=== PATIENT | male | born 1980 | race Caucasian/White ===

== ENCOUNTER → 2017-12-05 | Outpatient (CLI) | payer OTHER | LOC: FIMAGING 09:11 | PROVIDERS: ATTEND Emergency Medicine | DX: J98.09 Other diseases of bronchus, not elsewhere classified (principal); J98.11 Atelectasis; K44.9 Diaphragmatic hernia without obstruction or gangrene ==

== ENCOUNTER 2017-12-21 05:07 | Inpatient (IN) | payer OTHER ==
[2017-12-21] MEDS ORDERED: ALBUTEROL 3 ML DEYVIAL ONE ×2 (05:29→10:43)
[2017-12-21] MEDS ORDERED: ALBUTEROL 3 ML DEYVIAL IH ONE (05:29)
--- NOTE | 2017-12-21 06:01 | EDPHY ---
H & P Stated Complaint: cough X 2 months - Personal History Current Tetanus/Diphtheria Vaccine: Yes Current Tetanus Diphtheria and Acellular Pertussis (TDAP): Yes - Medical/Surgical History Hx Asthma: Yes Hx Chronic Respiratory Disease: No Hx Diabetes: No Hx Cardiac Disease: No Hx Renal Disease: No Hx Cirrhosis: No Hx Alcoholism: No Hx HIV/AIDS: No Hx Splenectomy or Spleen Trauma: No - Social History Smoking Status: Never smoked <Lionel Wills - Last Filed: 12/21/17 07:11> <Mayela Thorpe - Last Filed: 12/21/17 14:40> Time Seen by Provider: 12/21/17 05:17 HPI/ROS: Chief Complaint: Cough HPI: 37-year-old male who is been having a cough for the last 2 months. Patient was initially diagnosed with bronchitis. He followed up with Dr. Link , pulmonology earlier this week. He was given a prescription for inhaled steroid but only got that filled yesterday because of a pharmacy mix up. Patient states that he has been having worsening cough over the last 24 hr. Some mild pain with coughing in his left upper chest. He has had some subjective fevers or chills. He states he occasionally coughs up a quarter- sized piece of sputum which is occasionally blood tinged. No nausea or vomiting. No substernal chest pressure. No lightheadedness or fainting. No palpitations. ROS: 10 systems were reviewed and were negative except those elements noted in the HPI. PMH: Anxiety Social History: No smoking Family History: non-contributory Physical Exam: Gen: Awake, Alert, No Distress HEENT: Nose: no rhinorrhea Eyes: PERRLA, EOMI Mouth: Moist mucosa Neck: Supple, no JVD Chest: nontender, lungs clear to auscultation Heart: S1, S2 normal, no murmur Abd: Soft, non-tender, no guarding Back: no CVA tenderness, no midline tenderness Ext: no edema, non-tender Skin: no rash Neuro: CN II-XII intact, Sensation grossly intact, Strength 5/5 in bilateral upper and lower extremities (Lionel Wills) Constitutional: Initial Vital Signs Temperature (C) 38.0 C 12/21/17 05:12 Heart Rate 115 H 12/21/17 05:12 Respiratory Rate 18 12/21/17 05:12 Blood Pressure 104/56 L 12/21/17 05:12 O2 Sat (%) 92 12/21/17 05:12 O2 Delivery Mode Room Air Allergies/Adverse Reactions: ciprofloxacin Allergy (Severe, Verified 12/21/17 10:20) tendonitis levofloxacin [From Levaquin] Allergy (Severe, Verified 12/21/17 10:20) tendonitis benzonatate [From Tessalon Perles] Allergy (Unknown, Verified 12/21/17 10:20) throat swelling Home Medications: Medication Instructions Recorded Zolpidem Tartrate [Ambien] 10 mg PO HS 09/02/14 Acetaminophen/ASA/Caffeine 1 - 2 each PO DAILY PRN 12/21/17 [Excedrin Tablet (*)] Albuterol Sulfate [Proair Hfa] 2 puffs IH Q4H PRN 12/21/17 Azelaic Acid [Azelex] 1 suraj TP DAILY 12/21/17 Diazepam [Valium 10 MG (*)] 10 mg PO DAILY PRN 12/21/17 Ibuprofen [Motrin (*)] 200 - 400 mg PO Q6H PRN 12/21/17 Oxymetazoline HCl [Afrin Nasal 1 spray EACHNARE BID PRN 12/21/17 [place] (OTC)] Medical Decision Making - Diagnostics Imaging: I viewed and interpreted images myself <Lionel Wills - Last Filed: 12/21/17 07:11> - Diagnostics Imaging: Discussed imaging studies w/ power generation plant operator Radiologist, I viewed and interpreted images myself <Mayela Thorpe - Last Filed: 12/21/17 14:40> - Diagnostics Imaging Results: Imaging Impressions Chest X-Ray 12/21/17 05:28 Impression: Moderate left pleural effusion with left basilar consolidation, new since the comparison, and an air-fluid level, which could related to empyema, pneumonia, or other etiology. The patient subsequently underwent CT chest. Please see separate dictation. Chest x-ray shows a new left lower lobe infiltrate with effusion as compared to the x-ray on December 05. (Lionel Wills) Procedures: Procedure: Central line placement. Indication: sepsis. Risks, benefits, alternatives discussed with the patient including but not limited to bleeding, infection, vascular injury, and collapsed lung and consent obtained. A timeout was observed. Full maximal sterile barrier technique was used including cap, gown, sterile gloves, large sheet, hand washing and chlorhexidine prep. The area was anesthetized with 1% lidocaine. A 7 Malagasy triple lumen was placed in the right internal jugular using standard Seldinger technique. There were no complications. Blood return low pressure, dark blood. Patient tolerated procedure well. CXR results: Appropriate line placement, and no pneumothorax. X-ray was interpreted by myself. Radiologist interpretation is pending. The procedure was performed by myself. (Mayela Thorpe) ED Course/Re-evaluation: 37-year-old male coming with persistent cough the last 2 months which is working getting worse. Patient now has a new left lower lobe infiltrate with an effusion. He is also complaining some blood tinged sputum. This could certainly be a parapneumonic process pulse send off a D-dimer and CBC to evaluate for the possibility of PE. 0645 D-dimer is elevated. Will obtain a CT angiogram of the chest to evaluate for possible PE. 0715 patient signed out to Dr. Thorpe pending CT scan results. (Lionel Wills) 0800: pt c/o left-sided chest pain. Dilaudid 0.5 mg IV and Zofran 4 mg IV given. Immediately after the Dilaudid, the patient became hypotensive 75/40. IV normal saline 1 L given. I assessed the patient and told him the results of the CT scan. Results reveal a lung abscess versus necrotic tumor with a large left pleural effusion. Patient placed in respiratory isolation. No risk factors for TB, but concerning given necrotic lesion. Lactate and blood cultures drawn. Repeat BP 90/45. IR thoracentesis ordered. Hospitalist service was consulted for admission. Patient seen by Dr. Thibodeaux and the customer service advisor in the ED. 0900: BP 98/69, receiving IVF per sepsis protocol. Initial lactate is 2. Ceftriaxone and clindamycin IV ordered. 0930: remains alert and talkative. IVF infusing. Borderline BP. 10am: BP 93/54 after IVF bolus, then down to 80/50. Discussed with patient the need for a central line. He agrees to central line placement. A right IJ central line was placed by me. CXR reveals line in correct positioning, no PTX. Levophed IV initiated per protocol, titrated to maintain SBP 90. Repeat lactate 1.5. The pt was taken to the ICU in critical condition. I spent a total of 50 minutes of critical care time in obtaining history, performing a physical exam, bedside monitoring of interventions, collecting and interpreting tests and discussion with consultants but not including time spent performing procedures. (Mayela Thorpe) Differential Diagnosis: includes though not limited to pneumonia, tuberculosis, lung tumor, hypoxia, lung abscess (Mayela Thorpe) - Data Points Laboratory Results: Laboratory Results 12/21/17 06:20 12/21/17 06:20 12/21/17 12/21/17 12/21/17 06:20 06:20 06:20 WBC RBC Hgb Hct MCV MCH MCHC RDW Plt Count MPV Neut % (Auto) Lymph % (Auto) Winn % (Auto) Eos % (Auto) Baso % (Auto) Nucleat RBC Rel Count Absolute Neuts (auto) Absolute Lymphs (auto) Absolute Monos (auto) Absolute Eos (auto) Absolute Basos (auto) Absolute Nucleated RBC Immature Gran % Seg Neutrophils % Band Neutrophils % Lymphocytes % Monocytes % Eosinophils % Basophils % Metamyelocytes % Myelocytes % Promyelocytes % Blast Cells % Immature Gran # Absolute Seg Neuts Absolute Band Neuts Absolute Lymphocytes Absolute Monocytes Absolute Eosinophils Absolute Basophils Absolute Metamyelocyte Absolute Myelocytes Absolute Promyelocytes Absolute Plasma Cells Nucleated RBCs Absolute Blast Cells Plasma Cells % Platelet Estimate Polychromasia Hypochromasia D-Dimer Sodium 138 mEq/L mEq/L (135-145) Potassium 3.3 mEq/L mEq/L (3.3-5.0) Chloride 101 mEq/L mEq/L (97-110) Carbon Dioxide 27 mEq/l mEq/l (22-31) Anion Gap 10 mEq/L mEq/L (6-14) BUN 13 mg/dL mg/dL (7-23) Creatinine 1.0 mg/dL mg/dL (0.7-1.3) Estimated GFR > 60 Glucose 115 mg/dL H mg/dL (70-100) Calcium 8.7 mg/dL mg/dL (8.5-10.4) Lactate Dehydrogenase 467 IU/L IU/L (313-618) HIV 1&2 Antibody Pending 12/21/17 12/21/17 06:20 06:20 WBC 9.18 10^3/uL 10^3/uL (3.80-9.50) RBC 3.74 10^6/uL L 10^6/uL (4.40-6.38) Hgb 11.5 g/dL L g/dL (13.7-17.5) Hct 34.0 % L % (40.0-51.0) MCV 90.9 fL fL (81.5-99.8) MCH 30.7 pg pg (27.9-34.1) MCHC 33.8 g/dL g/dL (32.4-36.7) RDW 15.6 % H % (11.5-15.2) Plt Count 586 10^3/uL H 10^3/uL (150-400) MPV 8.7 fL fL (8.7-11.7) Neut % (Auto) Not Reported Lymph % (Auto) Not Reported Winn % (Auto) Not Reported Eos % (Auto) Not Reported Baso % (Auto) Not Reported Nucleat RBC Rel Count Not Reported Absolute Neuts (auto) Not Reported Absolute Lymphs (auto) Not Reported Absolute Monos (auto) Not Reported Absolute Eos (auto) Not Reported Absolute Basos (auto) Not Reported Absolute Nucleated RBC Not Reported Immature Gran % Not Reported Seg Neutrophils % 65.0 % % Band Neutrophils % 23.0 % % Lymphocytes % 7.0 % % Monocytes % 2.0 % % Eosinophils % 2.0 % % Basophils % 1.0 % % Metamyelocytes % 0.0 % % Myelocytes % 0.0 % % Promyelocytes % 0.0 % % Blast Cells % 0.0 % % Immature Gran # Not Reported Absolute Seg Neuts 5.97 10^/uL 10^/uL (1.70-6.50) Absolute Band Neuts 2.11 10^3/uL H 10^3/uL (0.00-0.70) Absolute Lymphocytes 0.64 10^3/uL L 10^3/uL (1.00-3.00) Absolute Monocytes 0.18 10^3/uL L 10^3/uL (0.30-0.80) Absolute Eosinophils 0.18 10^3/uL 10^3/uL (0.03-0.40) Absolute Basophils 0.09 10^3/uL 10^3/uL (0.02-0.10) Absolute Metamyelocyte 0.00 10^3/mL 10^3/mL (0.00-0.00) Absolute Myelocytes 0.00 10^3/mL 10^3/mL (0.00-0.00) Absolute Promyelocytes 0.00 10^3/uL 10^3/uL (0.00-0.00) Absolute Plasma Cells 0.00 10^3/uL 10^3/uL (0.00-0.00) Nucleated RBCs 0 /100 WBC /100 WBC (0-0) Absolute Blast Cells 0.00 10^3/uL 10^3/uL (0.00-0.00) Plasma Cells % 0.0 % % Platelet Estimate INCREASED H (ADEQ) Polychromasia 1+ H Hypochromasia 1+ H D-Dimer 2.01 ug/mLFEU H ug/mLFEU (0.00-0.50) Sodium Potassium Chloride Carbon Dioxide Anion Gap BUN Creatinine Estimated GFR Glucose Calcium Lactate Dehydrogenase HIV 1&2 Antibody Medications Given: Hydrocortisone (Solucortef) 50 mg IVP Q8HRS YOHANA Stop: 06/19/18 12:59 Last Admin: 12/21/17 14:17 Dose: 50 mg Vasopressin 25 unit/ Sodium (Chloride) 251.25 mls @ 24 mls/hr IV CONT YOHANA Stop: 06/19/18 12:29 Last Admin: 12/21/17 13:20 Dose: 251.25 mls Norepinephrine 4 mg/ Sodium (Chloride) 504 mls @ 0 mls/hr IV CONT YOHANA; Per Protocol PRN Reason: Protocol Stop: 06/19/18 13:29 Last Admin: 12/21/17 12:00 Dose: 504 mls Morphine Sulfate (Morphine) 1 - 2 mg IVP Q1HR PRN PRN Reason: Pain, Severe Unable to Take PO Stop: 12/31/17 09:10 Last Admin: 12/21/17 14:17 Dose: 2 mg Discontinued Medications Acetaminophen (Tylenol) 1,000 mg PO EDNOW ONE Stop: 12/21/17 08:37 Last Admin: 12/21/17 08:39 Dose: 1,000 mg Albuterol (Proventil Neb) 3 ml IH EDNOW ONE Stop: 12/21/17 05:30 Last Admin: 12/21/17 05:31 Dose: 3 ml Albuterol/Ipratropium (Duoneb) 3 ml IH EDNOW ONE Stop: 12/21/17 07:57 Last Admin: 12/21/17 08:03 Dose: 3 ml Fentanyl (Sublimaze) 100 mcg IVP .STK-MED ONE Stop: 12/21/17 12:51 Last Admin: 12/21/17 12:50 Dose: 100 mcg Hydromorphone HCl (Dilaudid) 1 mg IVP EDNOW ONE Stop: 12/21/17 07:57 Last Admin: 12/21/17 08:01 Dose: 1 mg Ampicillin Sodium/Sulbactam (Sodium 3 gm/ Sodium Chloride) 100 mls @ 200 mls/ hr IV EDNOW ONE PRN Reason: Protocol Stop: 12/21/17 09:10 Last Admin: 12/21/17 12:23 Dose: Not Given Sodium Chloride (Ns) 2,300 mls @ 4,600 mls/hr 30 ml/kg infuse over 30 min ( 2300 ml) IV EDNOW ONE PRN Reason: Protocol Stop: 12/21/17 09:11 Last Admin: 12/21/17 08:15 Dose: 2,300 mls Ceftriaxone Sodium/Dextrose (Rocephin 1 Gm (Premix)) 50 mls @ 100 mls/hr IV EDNOW ONE PRN Reason: Protocol Stop: 12/21/17 09:18 Last Admin: 12/21/17 09:05 Dose: 50 mls Clindamycin Phosphate/Dextrose (Cleocin 600 Mg (Premix)) 50 mls @ 100 mls/hr IV EDNOW ONE PRN Reason: Protocol Stop: 12/21/17 09:18 Last Admin: 12/21/17 09:05 Dose: 50 mls Norepinephrine 4 mg/ Sodium (Chloride) 504 mls @ 0 mls/hr IV EDNOW ONE; Per Protocol PRN Reason: Protocol Stop: 12/21/17 10:43 Last Admin: 12/21/17 11:36 Dose: 504 mls Midazolam HCl (Versed) 3 mg IVP .STK-MED ONE Stop: 12/21/17 12:51 Last Admin: 12/21/17 12:50 Dose: 3 mg Ondansetron HCl (Zofran) 4 mg IVP EDNOW ONE Stop: 12/21/17 07:57 Last Admin: 12/21/17 08:00 Dose: 4 mg Departure <Lionel Wills - Last Filed: 12/21/17 07:11> <Mayela Thorpe - Last Filed: 12/21/17 14:40> - Departure Disposition: [facility] Inpatient Acute Clinical Impression: Septic shock Abscess of lung with pneumonia Qualifiers: Laterality: left Lung location: lower lobe of lung Qualified Code(s): J85.1 - Abscess of lung with pneumonia Condition: Serious
[2017-12-21 06:30] LABS: PLATELET COUNT 586 10^3/uL (150-400)
[2017-12-21] MEDS ORDERED: IOPAMIDOL (ISOVUE 370) 100 ML BTL IV ONE (06:53)
[2017-12-21] MEDS ORDERED: ONDANSETRON 4 MG/2 ML VIAL IVP ONE (07:56)
[2017-12-21] MEDS ORDERED: IPRATROPIUM/ALBUTEROL 3 ML DEYVIAL IH ONE (07:56)
[2017-12-21] MEDS ORDERED: HYDROmorphONE/DILAUDID 2 MG/ML INJ IVP ONE (07:56)
[2017-12-21] MEDS ORDERED: IPRATROPIUM/ALBUTEROL 3 ML DEYVIAL ONE (07:57)
[2017-12-21] MEDS ORDERED: HYDROmorphONE/DILAUDID 1 MG/ML INJ ONE (07:58)
[2017-12-21] MEDS ORDERED: ACETAMINOPHEN 500 MG TAB PO ONE (08:36)
[2017-12-21] MEDS ORDERED: ACETAMINOPHEN 500 MG TAB ONE (08:37)
[2017-12-21] MEDS ORDERED: AMPICILLIN/SULBACTAM 3 GM in NS 100 ML IV ONE (08:41)
[2017-12-21] MEDS ORDERED: NS 2,300 ML IV ONE (08:42)
[2017-12-21] MEDS ORDERED: CLINDAMYCIN 600 MG/DEXTROSE 50 ML IV ONE (08:49)
[2017-12-21] MEDS ORDERED: ONDANSETRON DISINTEGRATING 4 MG TAB PO PRN (09:11)
[2017-12-21] MEDS ORDERED: ONDANSETRON 4 MG/2 ML VIAL IVP PRN (09:11)
[2017-12-21] MEDS ORDERED: ACETAMINOPHEN 325 MG TAB PO PRN (09:11)
--- NOTE | 2017-12-21 09:46 | GHP ---
DATE OF ADMISSION: 12/21/2017 CHIEF COMPLAINT: Worsening cough. HISTORY OF PRESENT ILLNESS: This is a 37-year-old man who has had a cough for the last few weeks. Presents to the emergency department with worsening cough. He reports he has had some mild hemoptysis. Has had about 3 months of anorexia, with weight loss, and worsening night sweats over the past week or 2. He saw Dr. Link about a week ago, who started him on a steroid inhaler, which he was unable to fill. He presented to the ED, just feeling worse and worse this morning. He has been tested for HIV in the past. He is not sure exactly when the last one was; however, he has always been negative. He reports no risky behavior since his last HIV test. He has been traveling quite significantly recently, and feels overall quite run down. He was noted to have some reflux, as well as a hiatal hernia that was seen on chest x-ray done on the 5th of this month. PAST MEDICAL/SURGICAL HISTORY: Anxiety. MEDICATIONS: Please see medication reconciliation. ALLERGIES: To fluoroquinolones. SOCIAL HISTORY: He is a never smoker. FAMILY HISTORY: His mother of lung cancer; however, she smoked for 50 years. REVIEW OF SYSTEMS: A 10-point review of systems is conducted and is negative except per HPI. PHYSICAL EXAM: VITAL SIGNS: Blood pressure 98/69, pulse is 125, respiration rate 25, satting 94% on 2 L. Temperature is 39.1. GENERAL: Mr. Hunter is a pleasant man who looks mildly uncomfortable, in no significant respiratory distress. HEENT: Shows him to be normocephalic, atraumatic. CARDIOVASCULAR: Shows him to be tachycardic. There are no murmurs, rubs, or gallops. PULMONARY : Shows him to be in no significant respiratory distress. He has diminished breath sounds on the left side. Normal breath sounds on the right side. ABDOMEN: Soft, nontender, nondistended. SKIN: Shows no rash. : Shows no Blanca. NEUROLOGIC: Shows him to be alert and oriented x3. He is moving all extremities. PSYCHIATRIC: Exam shows him to be not anxious. LABORATORY DATA: White count is 9, hemoglobin 11.5, platelets are 586, D- dimer is 2.0, lactate is 2.0. Basic metabolic panel shows a glucose of 115, otherwise unremarkable. DATA: 1. I discussed this with Dr. Link. Will plan bronchoscopy today. 2. I personally viewed and interpreted his chest x-ray. This shows a left- sided pleural effusion. 3. I personally viewed and interpreted his chest and thorax CT angiogram. Final read is pending. However, my read shows that he has a large left-sided complex pleural effusion. He has a left-sided area of possible atelectasis with an associated air-fluid level. IMPRESSION AND PLAN: 1. Pulmonary: He has two different findings on his pulmonary exam which may or may not be related. These include an area of atelectasis with an air-fluid level, as well as complex pleural effusion. Air-fluid level may actually represent a hiatal hernia, though other considerations include abscess, as well as chronic lung cancer. Pleural effusion appears to be complex, it is not layering well, though does not appear heterogeneous on CT scan. The plan will be to perform a thoracentesis this morning. After that, he will undergo a bronchoscopy. He will get antibiotics to cover anaerobes and gram-negatives, including Rocephin as well as clindamycin. We will check an HIV. I have discussed this with Mr. Hunter. 2. Sepsis: He is mildly hypotensive, although he has not received a fluid bolus. He is tachycardic, as well as febrile. Will triage him to the step- down unit for now. We will follow his course closely. Addendum: After arrival to the ICU, blood pressures continued to be low. He underwent bronch which was not terribly revealing. Thoracentesis showed purulence. He has been started on levophed for septic shock. 60 mins CC time spent /[id number]/MODL MTDD
[2017-12-21] MEDS ORDERED: ALTEPLASE 2 MG VIAL IVP PRN (10:28)
[2017-12-21] MEDS ORDERED: ACETAMINOPHEN/ASA/CAFFEINE 1 EACH TAB PO PRN (10:29)
[2017-12-21] MEDS ORDERED: DIAZEPAM 10 MG TAB PO PRN (10:29)
[2017-12-21] MEDS ORDERED: NOREPINEPHRINE BITARTRATE 4 MG in NS 500 ML IV ONE (10:42)
[2017-12-21] MEDS ORDERED: LIDOCAINE 1% 300 MG/30 ML SDV ONE ×2 (10:43→11:23)
[2017-12-21] MEDS ORDERED: EPINEPHrine 1 MG/ML INJ ONE (10:43)
[2017-12-21] MEDS ORDERED: fentaNYL 100 MCG/2 ML INJ ONE (10:43)
[2017-12-21] MEDS ORDERED: MIDAZOLAM 2 MG/2 ML VIAL ONE (10:43)
[2017-12-21] MEDS ORDERED: LIDOCAINE 2% JELLY 5 ML TUBE ONE (10:44)
[2017-12-21] MEDS: NOREPINEPHRINE BITARTRATE 4 MG in NS 500 ML IV SCH ×2 (12:00→16:43)
[2017-12-21] MEDS ORDERED: MIDAZOLAM 2 MG/2 ML VIAL IVP ONE (12:50)
[2017-12-21] MEDS ORDERED: fentaNYL 100 MCG/2 ML INJ IVP ONE (12:50)
--- NOTE | 2017-12-21 13:18 | BVPULMO ---
[facility] Surgical Services- Pulmonology Patient Name: Galdino Hunter Procedure Date: 12/21/2017 11:03 AM Patient Type: Inpatient Attending MD/ER Physician: Keith Link MD Procedure: Bronchoscopy Indications: Lung mass, Chronic cough Providers: Keith Link MD Medicines: Lidocaine 1% applied to cords 2 mL, Lidocaine 1% applied to the tracheobronchia l tree 6 mL, Fentanyl 100 mcg IV, Midazolam 3 mg mg IV Complications: Hypotension. He was on a levophed drip prior to the administration of anesthesi a, but the drips had to be increased to maintain BP. Procedure: After informed consent, a time out was performed. N95 masks were worn, and the procedure was done in a negative pressure room. The patient was given appropria te topical anesthesia and intravenous sedation. The fiberopic bronchoscope was pas sed via a bite block orally into the larynx and subsequently into the lower trachea bronchial tree. Throughout the procedure, the patient's blood pressure, pulse, and oxygen saturations were monitored continuously. The Bronchoscope (Video) was introduced through the mouth and advanced to the tracheobronchial tree of both lungs. The procedure was accomplished without difficulty. The patient tolerated the procedure well. Moderate Sedation: Moderate (conscious) sedation was administered by the endoscopy nurse and super vised by the endoscopist. The following parameters were monitored: oxygen saturation, heart rate, blood pressure, and response to care. Total physician intraservice time was 15 minutes. Findings: Protected brushings of an area of infiltration were obtained in the posterior b tete segment of the left lower lobe. Washings were obtained. The return was blood-tinged and mucoid. There were no endobronchial masses identified. He had significant coughing throughout the procedure, despiute copious topical lidocaine. Since his levophed drip was increasing, I did not feel additional anesthesia would be appropriate. Post Op Diagnosis: - Lung mass - Chronic cough - Protected brushings were obtained. - Washings were obtained. - Atelectasis of the left lower lobe Estimated Blood Loss: Estimated blood loss: none. Recommendation: - Return patient to [facility] for ongoing care. - Await brushing and washing results. Keith Link MD Keith Link MD 12/21/2017 1:17:34 PM This report has been signed electronicallyKeith Link MD Number of Addenda: 0 Note Initiated On: 12/21/2017 11:03 AM [email or web address]}
[2017-12-21] MEDS: VASOPRESSIN 25 UNIT in NS 250 ML IV SCH ×2 (13:20→21:08)
[2017-12-21 13:24] LABS: INR 1.47 (0.83-1.16)
[2017-12-21] MEDS: HYDROCORTISONE 100 MG/2 ML VIAL IVP SCH ×3 (14:17→22:13)
[2017-12-21] MEDS ORDERED: ALBUMIN 5% 250 ML BOTTLE IV ONE (14:20)
[2017-12-21] MEDS ORDERED: ALBUMIN 5% 250 ML IV ONE (16:53)
[2017-12-21] MEDS ORDERED: ALBUTEROL HFA ANES ONLY 200 PUFFS/8.5 GM MDI IH PRN (16:54)
[2017-12-21] MEDS ORDERED: CLINDAMYCIN 600 MG/DEXTROSE 50 ML IV SCH (17:00)
[2017-12-21] MEDS ORDERED: ALBUTEROL 60 PUFFS/8 GM MDI IH PRN (17:30)
[2017-12-21] MEDS ORDERED: ALBUMIN 5% 500 ML IV ONE (17:33)
[2017-12-21] MEDS: NS 1,000 ML IV SCH (19:30)
[2017-12-21] MEDS: HYDROCODONE/APAP 5/325 TAB PO PRN (19:33)
--- NOTE | 2017-12-21 20:46 | GCON ---
INFECTIOUS DISEASE CONSULTATION DATE OF CONSULTATION: 12/21/2017 REQUESTING PHYSICIAN: Keith Link MD. REASON FOR CONSULTATION: Likely left-sided empyema. HISTORY OF PRESENT ILLNESS: A 37-year-old male whose problems date back to approximately 2 months ago when he developed severe cough. The patient was treated at approximately October 20 with a Z-Asad with minimal improvement at the time of taking the Z-Asad, but he did have gradual improvement initially at the beginning of November. Approximately November 10, he noted the onset of hemoptysis and worsening purulent sputum which has persisted. The patient was evaluated by Pulmonary on December 09 and was diagnosed with upper airway cough syndrome and prescribed Advair, Ivone, and Rhinocort, and chest x-ray leading up to that evaluation was also normal except for a possible hiatal hernia on December 05. Approximately 4 days prior to admission, patient developed severe left-sided chest pain radiating up to his left shoulder and worsening foul- smelling sputum and post-tussive coughing. He also had trouble eating due to the severity of his coughing. He was also complaining of night sweats and a mild amount of weight loss. Upon presentation to the emergency room, patient had thrombocytosis, bandemia, was hypotensive and tachycardic, and noted on CT chest and CXR to have a sizable left-sided pleural effusion for which patient underwent aspiration with 20,000 WBCs, a pH of 7.5, and undetectable glucose. Gram stain was negative. Blood cultures were also obtained on admission. A BAL was performed, which was fairly unremarkable, and a thoracentesis was performed. Since admission, the patient has received a dose of ceftriaxone, a dose of clindamycin. Post pleural tap the patient's cough is improved. PAST MEDICAL HISTORY: Asthma in childhood and an episode of epilepsy. PAST SURGICAL HISTORY: Septoplasty. MEDICATIONS: Antibiotics as per HPI. ALLERGIES: Cipro and Levaquin cause tendon pain. FAMILY HISTORY: Positive for mother with lung neoplasm at age 56 and father with hypertension. SOCIAL HISTORY: Patient is a partnered [employer]. Does not use tobacco. Has 1 dog. No contact to livestock and his dog has not picked up any rabbits or rodents recently. No recent international travel. Occasional alcohol, but he has not drank in the last month and a half. The patient is a vegan. REVIEW OF SYSTEMS: A complete 10-point review of systems was performed and is negative except as mentioned in the HPI. Notably patient had black discoloration of his left front tooth starting a couple weeks ago. He did have recent dental cleaning approximately a little over 2 months ago. He denies any dental pain or episodes of aspiration. PHYSICAL EXAM: VITAL SIGNS: T-max 39.1, blood pressure 96/69, heart rate 120- 115, saturation 95% on 2 L. Respiratory rate 20. GENERAL: This is a pleasant young male sitting up in bed, in no respiratory distress. HEENT: Pupils are reactive bilaterally. No conjunctival hemorrhages. Oropharynx: The patient has discoloration of his teeth consistent with tetracycline therapy in childhood. Oropharynx is dry. No obvious dental caries. NECK: Supple. CARDIOVASCULAR: Tachycardic, regular rate, no murmurs. CHEST: The patient had absent breath sounds on the left hemithorax with occasional scattered crackles. Right side was clear. ABDOMEN: Soft, nontender. EXTREMITIES: No clubbing, cyanosis, or edema. NEUROLOGIC: He was moving all 4 extremities equally. LABORATORY: White count 9.1 with 65% neutrophils, 23% bands, hematocrit 34, platelets of 586. LFTs: AST 31, ALT 30, LDH 467, procalcitonin 9.4, creatinine 1.0. Cell studies as per HPI. Blood and pleural fluids are pending as well as BAL. ASSESSMENT AND PLAN: 37-year-old male with a protracted history of coughing, who now presents with sepsis and a large left-sided pleural effusion that has 20 ,000 white cells and an undetectable glucose consistent with PNA complicated by empyema. Suspect oral ezra such as Streptococcus but also cannot completely exclude staphylococcus. No clear risk factors for more unusual pathogens. No known history of methicillin-resistant Staphylococcus aureus. 1. Continue to follow cultures. 2. Continue ceftriaxone and metronidazole for empiric coverage of this exudative pleural fluid. 3. Assess for ongoing need for surgical evacuation of pleural fluid Discussed differing modalities and duration of therapy depending on additional information including culture data, including blood cultures, specifically mentioning that if blood cultures are positive, patient would warrant intravenous antibiotic therapy for duration. Also stressed the importance of evacuation of pleural fluid in the treatment of his infection. Thank you for this consultation. Time was 85 minutes, greater than 50% of time spent with education and counseling of the patient and his family who were at bedside including his partner and his father and sister. Coordination of care with hospitalist and pulmonary. /[id number]/MODL KATHERIN
--- NOTE | 2017-12-21 21:14 | PDMN ---
Medical Necessity Medical necessity: [facility] [place] M160 sepsis and other febrile illness, M540 pleural effusion A-2 days- Complex Pleural effusion with thoracentesis pend. bronchoscopy pend. pt also with worsening cough, mild hemoptysis, X 3 weeks, afebrile, anticipate > 2 MN ongoing monitoring , eval and tx.
[2017-12-21] MEDS: ZOLPIDEM TARTRATE 5 MG TAB PO SCH (23:57)
[2017-12-22] MEDS: NOREPINEPHRINE BITARTRATE 4 MG in NS 500 ML IV SCH (00:01)
[2017-12-22 04:22] LABS: HIV TYPE 1 AND 2 NEGATIVE (NEGATIVE)
[2017-12-22] MEDS: HYDROCORTISONE 100 MG/2 ML VIAL IVP SCH ×3 (05:31→23:07)
[2017-12-22] MEDS: HYDROCODONE/APAP 5/325 TAB PO PRN ×4 (05:31→19:03)
[2017-12-22] MEDS: NS 1,000 ML IV SCH ×2 (05:33→16:09)
[2017-12-22 06:25] LABS: PLATELET COUNT 399 10^3/uL (150-400)
[2017-12-22] MEDS: VASOPRESSIN 25 UNIT in NS 250 ML IV SCH ×2 (07:03→17:55)
[2017-12-22] MEDS ORDERED: BISACODYL 10 MG SUPP PR PRN (08:25)
[2017-12-22] MEDS ORDERED: LACTULOSE 20 GM/30 ML UDCUP PO PRN (08:25)
[2017-12-22] MEDS ORDERED: POLYETHYLENE GLYCOL 3350 17 GM PKT PO PRN (08:25)
[2017-12-22] MEDS ORDERED: MAGNESIUM HYDROXIDE 30 ML UDCUP PO PRN (08:25)
--- NOTE | 2017-12-22 08:45 | ECHO ---
[email or web address] [address] [address] Main: [phone] Fax: Transthoracic Echocardiogram Name: EMILE RESTREPO MR#: [id number] Study Date: 12/21/2017 Study Time: 02:51 PM Date of : 1980 Age: 37 year(s) Height: 177.8 cm (70 in.) Weight: 77.11 kg (170 lb.) BSA: 1.95 m2 Gender: Male Examination: Echo Indication: Hypotension Image Quality: Contrast: Requested by: Keith Link BP: 100 mmHg/52 mmHg Heart Rate: Rhythm: Indication: Hypotension Procedure Staff Egg Producer: Jeanine Maguire [facility] Reading Physician: Dhara Huerta MD Requesting Provider: Conclusions: Normal size left ventricle. No LV hypertrophy. The ejection fraction is estimated to be 60-65 %. Normal diastolic LV function. Subtle anteroseptal hypokinesis. Normal size right ventricle. Normal RV function. Mild mitral valve regurgitation is present. Trivial tricuspid valve regurgitation. Cannot assess PASP. There is no previous echocardiogram for comparison. Measurements: Chambers Valvular Assessment AV/MV Valvular Assessment TV/PV Normal Normal Normal Name Value Range Name Value Range Name Value Range Ao Melia (MM): 3.4 cm (2.2 cm-3.7 AV Vmax: 1.16 m/s (1 m/s-1.7 cm) m/s) IVSd (2D): 0.8 cm (0.6 cm-1.1 AV meanP mmHg ( - ) cm) MV E Vmax: 0.80 m/s ( - ) LVDd (2D): 5.0 cm (4.2 cm-5.9 MV A Vmax: 0.67 m/s ( - ) cm) MV E/A: 1.19 ( - ) LVDs (2D): 3.2 cm (2.1 cm-4 cm) LVPWd (2D): 0.5 cm (0.6 cm-1 cm) LVEF (MOD4): 68 % (>=55 %) EF Range: 60-65 % Continued Measurements: Patient: EMILE RESTREPO Study Date: 12/21/2017 Page 1 of 2 02:51 PM Chambers Valvular Assessment AV/MV Name Value Name Value LADs: 3.2 cm MV E' Septal: 0.10 m/s LADs Lon.4 cm MV E/E' Septal: 8.10 LA Area: 14.7 cm2 MV E/E' Lateral: 5.80 LA Volume: 41 ml LA Volume Index: 21.0 ml/m2 Additional Vessels Name Value Ao Ascendin.1 cm Findings: Left Ventricle: Normal size left ventricle. No LV hypertrophy. Normal global systolic LV function. The ejection fraction is estimated to be 60-65 %. Normal diastolic LV function. Subtle anteroseptal hypokinesis. Right Ventricle: Normal size right ventricle. Normal RV function. Left Atrium: The left atrium is normal in size. Right Atrium: The right atrium is normal in size. Mitral Valve: The mitral valve is normal in appearance and function. Mild mitral valve regurgitation is present. Aortic Valve: The aortic valve is normal in appearance and function. Tricuspid Valve: The tricuspid valve is normal in appearance and function. Trivial tricuspid valve regurgitation. Cannot assess PASP. Pulmonic Valve: The pulmonic valve is normal in appearance and function. Aorta: The aorta is normal. Pericardium: No pericardial effusion. (No Signature Object) Patient: EMILE RESTREPO Study Date: 12/21/2017 Page 2 of 2 02:51 PM [id number]
[2017-12-22] MEDS: SENNOSIDES/DOCUSATE SODIUM TAB PO SCH ×2 (09:25→20:12)
[2017-12-22] MEDS: AZELAIC ACID TP SCH (09:26)
--- NOTE | 2017-12-22 09:37 | ASMTCMCOM ---
CM Note CM Note Notes: 37yo male admitted for Worsening cough, Complex L PE, Lung mass. Patient has a Life Partner, Shawn. Discharge needs are unknown as yet. CM to follow. Date Signed: 12/22/2017 09:36 AM Electronically Signed By:Ara Mcdonald LCSW
--- NOTE | 2017-12-22 09:37 | HOSPPROG ---
Hospitalist Progress Note Assessment/Plan: # suspected R sided empyema - pH 7.5, but glc low and GPCs and GNRs seen on bronch and pleural fluid cloudy - cont rocephin and flagyl - chest tube in place - HIV negative - discussed with patient # septic chock - cont levophed and vasopressin - wean today as possible # coagulopathy - d/t sepsis # subtle anteroseptal hypokinesis - doubt clinically associated with current presentation Subjective: feels overall better today Objective: Vital Signs Temp Pulse Resp BP Pulse Ox 36.5 C 80 16 97/59 L 95 12/22/17 05:00 12/22/17 08:00 12/22/17 08:00 12/22/17 08:00 12/22/17 08:00 Microbiology 12/21/17 12:30 Gram Stain - Final Bronchial Washing - Left Lower Lobe 12/21/17 08:43 Respiratory Panel (PCR) - Final Nasal, Sinus - Swab No Organism Detected Laboratory Results 12/22/17 05:50 12/22/17 05:50 12/21/17 12/22/17 12/23/17 05:59 05:59 05:59 Intake Total 7265 Output Total 2750 Balance 4515 PT 18.0 SEC (12.0-15.0) H 12/21/17 13:05 INR 1.47 (0.83-1.16) H 12/21/17 13:05 35 minutes of critical care time managing septic shock - Physical Exam Constitutional: no apparent distress, not in pain Cardiovascular: regular rate and rhythym, no murmur, rub, or gallop Respiratory: no respiratory distress, other (diminished BS on R side) Gastrointestinal: soft, non-tender abdomen, No guarding, No rebound, No distension ICD10 Worksheet Patient Problems: Problems Problem Status Onset Abscess of lung with pneumonia Acute Septic shock Acute
--- NOTE | 2017-12-22 09:44 | PDINTPN ---
[facility] Progress Note Assessment/Plan: Assessment/plan: * Pneumonia -continue current antibiotics * Empyema-status post chest tube -follow chest tube drainage closely -recheck CT scan of the chest in the morning * Septic shock-currently on Levophed and vasopressin -will wean as tolerated * Acute respiratory failure secondary to above -continue to wean FiO2 as tolerated * Pain-well controlled * Nutrition-adequate * VTE prophylaxis * Stress ulcer prophylaxis * Ambulation Subjective: Sitting up in chair. Resting comfortably. Pain well tolerated. Breathing much easier since chest tube placed. Objective: Vital Signs Temp Pulse Resp BP Pulse Ox 36.5 C 80 16 97/59 L 95 12/22/17 05:00 12/22/17 08:00 12/22/17 08:00 12/22/17 08:00 12/22/17 08:00 Microbiology 12/21/17 12:30 Gram Stain - Final Bronchial Washing - Left Lower Lobe 12/21/17 08:43 Respiratory Panel (PCR) - Final Nasal, Sinus - Swab No Organism Detected Laboratory Results 12/22/17 05:50 12/22/17 05:50 12/21/17 12/22/17 12/23/17 05:59 05:59 05:59 Intake Total 7265 Output Total 2750 Balance 4515 PT 18.0 SEC (12.0-15.0) H 12/21/17 13:05 INR 1.47 (0.83-1.16) H 12/21/17 13:05 - Time Spent With Patient Time Spent With Patient: 35 min of time spent with patient, over 1/2 involved with coordination of care or counseling Case discussed with nursing Physical Exam - Physical Exam General Appearance: WD/WN, alert EENT: PERRL/EOMI Neck: non-tender, full range of motion, supple, normal inspection Respiratory: crackles (Left base), No respiratory distress, No wheezing Cardiac/Chest: normal peripheral pulses, regular rate, rhythm Peripheral Pulses: 2+: carotid (R), carotid (L), femoral (R), femoral (L), dorsalis-pedis (R), dorsalis-pedis (L) Abdomen: normal bowel sounds, non-tender, soft Male Genitalia: deferred Rectal: deferred Skin: normal color, warm/dry Extremities: normal range of motion, non-tender, normal inspection, normal capillary refill Neuro/Psych: no motor/sensory deficits, alert, normal mood/affect, oriented x 3 ICD10 Worksheet Patient Problems: Problems Problem Status Onset Abscess of lung with pneumonia Acute Septic shock Acute
--- NOTE | 2017-12-22 12:58 | PCMIDPN ---
Assessment/Plan: Assessment: Left-sided empyema-looks like a secondary process to an initial upper respiratory infection by history. Culture of the thoracic fluid as well as the blood and sputum samples do not show any pathogens at this point. His history of malodor and foul tasting sputum do raise the likelihood of an anaerobic pathogen. Agree with continued ceftriaxone and metronidazole. Will increase the ceftriaxone dose to 2 g daily. Plan: 1. Increase IV ceftriaxone to 2 g from 1 daily. 2. Continue metronidazole. 3. Follow culture results as well as clinical course. 12/22/17 12:58 Subjective: Patient is sitting up in his bed. He looks well. Denies any new complaint. Reviewed history of illness with the patient. Objective: Ceftriaxone # 2 Metronidazole # 2 Vital Signs Temp Pulse Resp BP Pulse Ox 36.5 C 76 14 92/60 L 96 12/22/17 05:00 12/22/17 12:23 12/22/17 12:23 12/22/17 12:23 12/22/17 12:23 Microbiology 12/21/17 12:30 Mycobacterial Smear (HOLLIE) - Final Lung Left Lower Lobe - Bronchial Washings 12/21/17 12:30 Gram Stain - Final Bronchial Washing - Left Lower Lobe 12/21/17 08:43 Respiratory Panel (PCR) - Final Nasal, Sinus - Swab No Organism Detected Laboratory Results 12/22/17 05:50 12/22/17 05:50 12/21/17 12/22/17 12/23/17 05:59 05:59 05:59 Intake Total 7265 Output Total 2750 350 Balance 4515 -350 - Physical Exam General Appearance: WD/WN, alert, no apparent distress, non-toxic Respiratory: crackles (Left lower lobe), No lungs clear, No normal breath sounds , No respiratory distress Cardiac/Chest: regular rate, rhythm, No tachycardia Skin: normal color, warm/dry, No rash Neuro/Psych: alert, normal mood/affect, oriented x 3 ICD10 Worksheet Patient Problems: Problems Problem Status Onset Abscess of lung with pneumonia Acute Septic shock Acute
--- NOTE | 2017-12-22 15:05 | ASMTCMCOM ---
CM Note CM Note Notes: Patient given MPOA paperwork to complete. Date Signed: 12/22/2017 03:05 PM Electronically Signed By:Ara Mcdonald LCSW
[2017-12-22] MEDS: ZOLPIDEM TARTRATE 5 MG TAB PO SCH (23:08)
[2017-12-23] MEDS: NS 1,000 ML IV SCH ×2 (00:08→21:51)
[2017-12-23] MEDS: CALCIUM CARBONATE 500 MG CHEWABLE TAB PO PRN ×2 (00:08→20:23)
[2017-12-23] MEDS: VASOPRESSIN 25 UNIT in NS 250 ML IV SCH (03:28)
[2017-12-23] MEDS: HYDROCODONE/APAP 10/325 TAB PO PRN ×4 (06:00→20:21)
[2017-12-23] MEDS: HYDROCORTISONE 100 MG/2 ML VIAL IVP SCH ×3 (06:01→21:50)
[2017-12-23 06:25] LABS: PLATELET COUNT 417 10^3/uL (150-400)
[2017-12-23] MEDS: AZELAIC ACID TP SCH (08:15)
[2017-12-23] MEDS: SENNOSIDES/DOCUSATE SODIUM TAB PO SCH ×2 (08:15→19:42)
--- NOTE | 2017-12-23 09:44 | PDINTPN ---
Services Program Manager Progress Note Assessment/Plan: Assessment/plan: * Pneumonia -continue current antibiotics * Empyema-status post chest tube -follow chest tube drainage closely -CT of chest pending * Septic shock-resolved. Off pressors. * Acute respiratory failure secondary to above -on minimal FiO2 * Pain-well controlled * Nutrition-adequate * VTE prophylaxis * Stress ulcer prophylaxis * Ambulation Subjective: Sitting up in bed. Comfortable. Feels markedly improved. Pain is tolerable. Objective: Vital Signs Temp Pulse Resp BP Pulse Ox 36.6 C 102 H 22 H 108/65 89 L 12/23/17 08:00 12/23/17 09:00 12/23/17 09:00 12/23/17 09:00 12/23/17 09:00 Microbiology 12/21/17 12:30 Gram Stain - Final Bronchial Washing - Left Lower Lobe 12/21/17 12:30 Mycobacterial Smear (HOLLIE) - Final Lung Left Lower Lobe - Bronchial Washings Laboratory Results 12/23/17 06:00 12/23/17 06:00 12/22/17 12/23/17 12/24/17 05:59 05:59 05:59 Intake Total 7265 4364 Output Total 2750 998 Balance 4515 3366 PT 18.0 SEC (12.0-15.0) H 12/21/17 13:05 INR 1.47 (0.83-1.16) H 12/21/17 13:05 Laboratory Results 12/23/17 06:00 12/23/17 06:00 12/22/17 12/21/17 12/21/17 05:50 07:57 06:20 Calcium 7.6 mg/dL L mg/dL (8.5 - 10.4) Total Bilirubin 0.5 mg/dL mg/dL (0.1 - 1.4) AST 17 IU/L IU/L (17 - 59) ALT 25 IU/L IU/L (21 - 72) Alkaline Phosphatase 89 IU/L IU/L (38 - 126) Total Protein 4.5 g/dL L g/dL (6.3 - 8.2) Albumin 2.3 g/dL L g/dL (3.5 - 5.0) Pleural Fluid Source PLEURAL Pleural Color YELLOW Pleural Appearance CLOUDY H Pleural pH 7.5 (6.8 - 7.6) Pleural WBC 53470 /mm3 /mm3 Pleural RBC 4661 /MM3 /MM3 Pleural Neutrophils 88 % % Pleural Eosinophils 3 % % (0 - 10) Pleural Lymphocytes % 4 % % Pleural Total Protein 3.6 g/dL g/dL Pleural LDH 4833 IU/L IU/L Pleural Glucose < 20 mg/dL L mg/dL (55 - 113) HIV 1&2 Antibody NEGATIVE 12/21/17 08:43 Respiratory Panel (PCR) - Final Nasal, Sinus - Swab No Organism Detected - Time Spent With Patient Time Spent With Patient: 35 min of time spent with patient, over 1/2 involved with coordination of care or counseling. Case discussed with Nursing and Infectious Disease Physical Exam - Physical Exam General Appearance: alert, no apparent distress EENT: PERRL/EOMI, normal ENT inspection Neck: non-tender Respiratory: crackles (Left greater than right), No respiratory distress, No wheezing Cardiac/Chest: normal peripheral pulses, regular rate, rhythm Peripheral Pulses: 2+: carotid (R), carotid (L), femoral (R), femoral (L), dorsalis-pedis (R), dorsalis-pedis (L) Abdomen: normal bowel sounds, non-tender, soft Male Genitalia: deferred Rectal: deferred Skin: normal color, warm/dry Extremities: non-tender Neuro/Psych: alert, oriented x 3 ICD10 Worksheet Patient Problems: Problems Problem Status Onset Abscess of lung with pneumonia Acute Septic shock Acute
--- NOTE | 2017-12-23 10:28 | PCMIDPN ---
Assessment/Plan: 1. Large left-sided empyema: Continues to have large output from chest tube. Will review repeat CT scan this morning. Now off pressors! Continue ceftriaxone and metronidazole as is. PICC line likely later this week. HIV antibody negative. Will likely go to floor later today. Subjective: Just returned from CT scan. Smiling, in good spirits. Per the patient's nurse , he is now off pressors as of this morning. No nausea or vomiting. Some loose stools secondary to stool softeners. Objective: Ceftriaxone 2 g IV daily day 3 Metronidazole 500 mg IV q.8 hours day 3 T-max 37.2 degrees 95% on 3 L Vital Signs Temp Pulse Resp BP Pulse Ox 36.6 C 67 16 104/66 95 12/23/17 08:00 12/23/17 10:00 12/23/17 10:00 12/23/17 10:00 12/23/17 10:00 Microbiology 12/21/17 12:30 Gram Stain - Final Bronchial Washing - Left Lower Lobe 12/21/17 12:30 Mycobacterial Smear (HOLLIE) - Final Lung Left Lower Lobe - Bronchial Washings Laboratory Results 12/23/17 06:00 12/23/17 06:00 12/22/17 12/23/17 12/24/17 05:59 05:59 05:59 Intake Total 7265 4364 Output Total 2750 998 Balance 7785 1946 All cultures so far negative, original aspirate not set up anaerobically. - Physical Exam General Appearance: alert, no apparent distress EENT: pharynx normal, No thrush Respiratory: other (Pigtail catheter wants to the posterior aspect of his left chest. Diminished breath sounds left base, otherwise fairly clear throughout.) Neck: other (Right IJ in place) Cardiac/Chest: tachycardia Abdomen: non-tender, soft Skin: No rash Neuro/Psych: oriented x 3 ICD10 Worksheet Patient Problems: Problems Problem Status Onset Abscess of lung with pneumonia Acute Septic shock Acute
--- NOTE | 2017-12-23 13:57 | GCON ---
DATE OF CONSULTATION: 12/23/2017 Patient seen at the request of Dr. Merchant with the patient's permission. 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 RECOMMENDATIONS: This patient should undergo decortication. We will initially attempt it with a VAT S procedure, although I suspect this will be unsuccessful given the duration and the density of the a ppearing findings on CAT scan. The patient is agreeable. I did attempt to reach his partner, Shawn, who was not answering. I will discuss it with his father. He is scheduled for tomorrow afternoon. CHIEF COMPLAINT: A 37-year-old gentleman with a cough for the last few weeks, who presented in the e mergency room with worsening cough and hemoptysis. He had about 3 months of anorexia and weight loss , worsening night sweats, and he saw Dr. Link a week ago, who started him on a steroid inhaler, whic h he was unable to fill. He re-presented to the emergency room with feeling worse and was admitted. He became hypotensive requiring pressors. Chest tube was placed with culture negative. Fluid drain ed with the ongoing indwelling tube. Repeat CT scan reveals loculated, complicated trapped lung on t he left. Socially, human immunodeficiency virus has been tested in the past and is negative. He francois s admit to anxiety. ALLERGIES: To fluoroquinolones. SOCIAL HISTORY: He never smoked. FAMILY HISTORY: Positive for his mother dying of lung cancer; however, she smoked for 50 years. REVIEW OF SYSTEMS: At the present time, he is feeling much better since admission. He has less shor tness of breath or pain. He does take pain pills periodically, mostly related to the chest tube. PHYSICAL EXAMINATION: GENERAL: Moderately overweight, young gentleman sitting comfortably on the ed ge of the bed. VITAL SIGNS: Blood pressure 102/76, respirations 14, heart rate 76. HEENT: Normoce phalic. PERRLA. EOMI. NECK: Without bruit, adenopathy, or thyromegaly. HEART: Rate is regular. LUNGS: Diminished in the left base. He has an indwelling catheter to a Pleur-evac. ABDOMEN: Scap hoid, nontender. Bowel sounds are active. EXTREMITIES: Pedal pulses are 2+ and symmetrical. Please see lab for details, CT scan for details. /[id number]/MODL
[2017-12-23] MEDS: ENOXAPARIN 40 MG/0.4 ML SYR SC SCH (16:13)
[2017-12-23] MEDS ORDERED: BENZONATATE 100 MG CAP PO PRN (23:12)
--- NOTE | 2017-12-23 23:13 | HOSPPROG ---
Hospitalist Progress Note Assessment/Plan: Assessment: 37 yo M p/w R empyema Plan: # R sided empyema. POA, acute, new problem to this provider, further w/u indicated. Ongoing high chest tube output and rising WBC, CXR w/ ongoing LLL dense air space disease (personally interpreted) -d/w Dr. Merchant on team rounds, he recommends CT surg eval, and Dr. Stone has recommended decortication -plan for AM -appreciate ongoing ID consult, cont CTX/Metronidazole # Septic chock. Hypotensive and requiring pressor support, has been weaned off levophed/vasopressin # Coagulopathy. 2/2 septic shock, resolved # Anemia. Likely 2/2 marrow suppression/inflammation from above, monitor post-op Diet. Regular, NPO after MN PPx. High risk, holding lovenox for surg, SCDs Code. Full Dispo. ADD uncertain, surg in AM Subjective: pain well controlled on PO Rx Objective: Vital Signs Temp Pulse Resp BP Pulse Ox 36.6 C 76 13 111/63 93 12/23/17 23:08 12/23/17 22:00 12/23/17 22:00 12/23/17 22:00 12/23/17 22:00 Microbiology 12/21/17 12:30 Gram Stain - Final Bronchial Washing - Left Lower Lobe 12/21/17 12:30 Mycobacterial Smear (HOLLIE) - Final Lung Left Lower Lobe - Bronchial Washings Laboratory Results 12/23/17 06:00 12/23/17 06:00 12/22/17 12/23/17 12/24/17 05:59 05:59 05:59 Intake Total 7265 4364 1500 Output Total 2750 998 1320 Balance 4515 3366 180 PT 18.0 SEC (12.0-15.0) H 12/21/17 13:05 INR 1.47 (0.83-1.16) H 12/21/17 13:05 - Physical Exam Constitutional: no apparent distress, appears nourished, not in pain, No uncomfortable Cardiovascular: regular rate and rhythym, no murmur, rub, or gallop, No edema Respiratory: reduced air movement (L mid/lower lateral segs), inspiratory crackles (L upper posterior seg, R base), respiratory distress, No expiratory wheeze, No bronchial breath sounds Gastrointestinal: normoactive bowel sounds, soft, non-tender abdomen, no palpable masses, No distension Neurologic: AAOx3 Psychiatric: interacting appropriately, not anxious, not encephalopathic, thought process linear ICD10 Worksheet Patient Problems: Problems Problem Status Onset Abscess of lung with pneumonia Acute Septic shock Acute
[2017-12-23] MEDS: GUAIFENESIN/DM 10 ML UDCUP PO PRN (23:22)
[2017-12-23] MEDS: ZOLPIDEM TARTRATE 5 MG TAB PO SCH (23:22)
[2017-12-23] MEDS: FAMOTIDINE 20 MG TAB PO SCH (23:22)
[2017-12-24] MEDS: HYDROCORTISONE 100 MG/2 ML VIAL IVP SCH ×2 (06:39→15:49)
[2017-12-24 07:24] LABS: PLATELET COUNT 517 10^3/uL (150-400)
[2017-12-24] MEDS: GUAIFENESIN/DM 10 ML UDCUP PO PRN (07:57)
[2017-12-24] MEDS: HYDROCODONE/APAP 10/325 TAB PO PRN ×2 (07:57→20:45)
[2017-12-24] MEDS: FAMOTIDINE 20 MG TAB PO SCH ×2 (08:09→18:32)
[2017-12-24] MEDS: AZELAIC ACID TP SCH (08:09)
[2017-12-24] MEDS: SENNOSIDES/DOCUSATE SODIUM TAB PO SCH (08:09)
--- NOTE | 2017-12-24 08:09 | PCMIDPN ---
Assessment/Plan: # Necrotizing left lower lobe pneumonia with empyema. BAL showing MSSA, which is consistent clinical picture --due to progressive necrosis left lower lung on CT yesterday, patient to OR today for VATS --briefly reviewed likely need a longer duration of IV therapy at home --if additional data corroborates only MSSA, would probably change to cefazolin 2gm IV q8h Microbiology 12/21 BAL: MSSA 12/21 pleural fluid: G stain negative, culture no growth today 12/21 blood cultures (2) NGTD Imaging: Reviewed CT scan from yesterday with progressive necrosis left lower lung and small abscess formation, pleural fluid is less Medications Ceftriaxone 2 g IV daily #4 metronidazole 500 mg IV Q 8, #3 Subjective: Patient with persistent coughing, discomfort associated with chest tube No diarrhea, itching or rash Objective: Vital Signs Temp Pulse Resp BP Pulse Ox 36.6 C 54 L 16 98/52 L 98 12/23/17 23:08 12/24/17 06:00 12/24/17 06:00 12/24/17 06:00 12/24/17 06:00 Microbiology 12/21/17 12:30 Gram Stain - Final Bronchial Washing - Left Lower Lobe 12/21/17 12:30 Mycobacterial Smear (HOLLIE) - Final Lung Left Lower Lobe - Bronchial Washings Laboratory Results 12/24/17 06:45 12/23/17 06:00 12/23/17 12/24/17 12/25/17 05:59 05:59 05:59 Intake Total 4364 2078 Output Total 998 2110 Balance 3366 -32 - Physical Exam General Appearance: alert Respiratory: other (Decreased breath sounds right base, decreased breath sounds 2/[address] up on the left, poor air movement on the left, chest tube in place left side), No accessory muscle use Cardiac/Chest: bradycardia Extremities: No pedal edema Abdomen: non-tender, soft Skin: pallor, No rash Neuro/Psych: alert, normal mood/affect, oriented x 3 - Time Spent With Patient Time Spent with Patient: greater than 35 minutes (care coordinated w Dr. Merchant and nursing) Time Spent with Patient: Greater than 35 minutes spent on this patients care, greater than 50% of time spent counseling, educating, and coordinating care regarding the above mentioned plan. ICD10 Worksheet Patient Problems: Problems Problem Status Onset Abscess of lung with pneumonia Acute Septic shock Acute
--- NOTE | 2017-12-24 08:54 | PDINTPN ---
[employer] In[employer] Progress Note Assessment/Plan: Assessment/plan: * Necrotizing Pneumonia. White blood cell count up some. -continue antibiotics per Infectious Disease * Empyema-status post chest tube -follow chest tube drainage closely -decortication today * Septic shock-resolved. Off pressors. * Acute respiratory failure secondary to above -on minimal FiO2 * Pain-well controlled * Nutrition-adequate * VTE prophylaxis * Stress ulcer prophylaxis * Ambulation Subjective: Sitting up in bed. Resting comfortably. Pain well tolerated. Feels better overall. Objective: Vital Signs Temp Pulse Resp BP Pulse Ox 36.3 C 85 18 114/79 93 12/24/17 08:00 12/24/17 08:00 12/24/17 08:00 12/24/17 08:00 12/24/17 08:00 Microbiology 12/21/17 12:30 Gram Stain - Final Bronchial Washing - Left Lower Lobe 12/21/17 12:30 Mycobacterial Smear (HOLLIE) - Final Lung Left Lower Lobe - Bronchial Washings Laboratory Results 12/24/17 06:45 12/23/17 06:00 12/23/17 12/24/17 12/25/17 05:59 05:59 05:59 Intake Total 4364 2078 Output Total 998 2110 Balance 3366 -32 PT 18.0 SEC (12.0-15.0) H 12/21/17 13:05 INR 1.47 (0.83-1.16) H 12/21/17 13:05 - Time Spent With Patient Time Spent With Patient: 35 min of time spent with patient, over 1/2 involved with coordination of care counseling. Case discussed with nursing Physical Exam - Physical Exam General Appearance: WD/WN, alert, no apparent distress EENT: PERRL/EOMI Neck: non-tender, full range of motion, supple, normal inspection Respiratory: crackles (Bibasilar), No respiratory distress, No wheezing Cardiac/Chest: normal peripheral pulses, regular rate, rhythm Peripheral Pulses: 2+: carotid (R), carotid (L), femoral (R), femoral (L), dorsalis-pedis (R), dorsalis-pedis (L) Abdomen: normal bowel sounds, non-tender, soft Male Genitalia: deferred Rectal: deferred Skin: normal color, warm/dry Extremities: normal range of motion, non-tender, normal inspection, normal capillary refill Neuro/Psych: no motor/sensory deficits, alert, normal mood/affect, oriented x 3 ICD10 Worksheet Patient Problems: Problems Problem Status Onset Abscess of lung with pneumonia Acute Septic shock Acute
[2017-12-24] MEDS ORDERED: BUPIVACAINE 0.5% 30 ML SDV ONE (10:43)
[2017-12-24] MEDS ORDERED: LR 1,000 ML IV ONE (11:15)
[2017-12-24] MEDS ORDERED: MIDAZOLAM 2 MG/2 ML VIAL IVP ONE (11:20)
--- NOTE | 2017-12-24 11:20 | PDANEPAE ---
ANE History of Present Illness thoracoscopy/thoracotomy decortication ANE Past Medical History - Cardiovascular History Hx Hypertension: No Hx Arrhythmias: No Hx Chest Pain: No Hx Coronary Artery / Peripheral Vascular Disease: No Hx CHF / Valvular Disease: No Hx Palpitations: No - Pulmonary History Hx COPD: No Hx Asthma/Reactive Airway Disease: Yes Hx Recent Upper Respiratory Infection: Yes Hx Oxygen in Use at Home: No Hx Sleep Apnea: No Sleep Apnea Screening Result - Last Documented: Negative - Neurologic History Hx Cerebrovascular Accident: No Hx Seizures: Yes Hx Dementia: No Neurologic History Comment: related to stress - Endocrine History Hx Diabetes: No Hypothyroid: No Hyperthyroid: No - Renal History Hx Renal Disorders: No - Liver History Hx Hepatic Disorders: No - Chronic Pain History Chronic Pain: No ANE Review of Systems Review of Systems: - Exercise capacity Exercise capacity: >=4 METS ANE Patient History - Allergies Allergies/Adverse Reactions: ciprofloxacin Allergy (Severe, Verified 12/21/17 10:20) tendonitis levofloxacin [From Levaquin] Allergy (Severe, Verified 12/21/17 10:20) tendonitis benzonatate [From Tessalon Perles] Allergy (Unknown, Verified 12/21/17 10:20) throat swelling - Home Medications Home Medications: Zolpidem Tartrate [Ambien] 10 mg PO HS 09/02/14 [Last Taken Unknown] Acetaminophen/ASA/Caffeine [Excedrin Tablet (*)] 1 - 2 each PO DAILY PRN [Last Taken Unknown] Albuterol Sulfate [Proair Hfa] 2 puffs IH Q4H PRN 12/21/17 [Last Taken Unknown] Azelaic Acid [Azelex] 1 suraj TP DAILY 12/21/17 [Last Taken Unknown] Diazepam [Valium 10 MG (*)] 10 mg PO DAILY PRN 12/21/17 [Last Taken Unknown] Ibuprofen [Motrin (*)] 200 - 400 mg PO Q6H PRN 12/21/17 [Last Taken Unknown] Oxymetazoline HCl [Afrin Nasal [place] (OTC)] 1 spray EACHNARE BID PRN 12/21/17 [ Last Taken Unknown] - NPO status NPO Status: no food or drink >8 hours NPO Since - Liquids (Date): 12/24/17 NPO Since - Liquids (Time): 00:00 NPO Since - Solids (Date): 12/24/17 NPO Since - Solids (Time): 00:00 - Smoking Hx Smoking Status: Never smoked ANE Labs/Vital Signs - Labs Result Diagrams: 12/24/17 06:45 12/23/17 06:00 - Vital Signs Blood Pressure: 112/69 Heart Rate: 79 Respiratory Rate: 14 O2 Sat (%): 94 Height: 177.8 cm Weight: 77.111 kg ANE Physical Exam - Airway Mallampati Score: Class 2 Mouth exam: normal dental/mouth exam - Pulmonary Pulmonary: no respiratory distress - Cardiovascular Cardiovascular: regular rate and rhythym - ASA Status ASA Status: II ANE Anesthesia Plan Anesthesia Plan: general endotracheal anesthesia Specialized Airway: double lumen tube
[2017-12-24] MEDS ORDERED: SUCCINYLCHOLINE CHLORIDE 200 MG/10 ML SYR IVP ONE (11:31)
[2017-12-24] MEDS ORDERED: ROCURONIUM 100 MG/10 ML VIAL ONE (11:31)
[2017-12-24] MEDS ORDERED: MIDAZOLAM 2 MG/2 ML VIAL ONE (11:31)
[2017-12-24] MEDS ORDERED: TALC 3 GM INTRAPLEURAL VIAL ONE (11:34)
[2017-12-24] MEDS ORDERED: fentaNYL 100 MCG/2 ML INJ ONE (11:47)
[2017-12-24] MEDS ORDERED: PROPOFOL 200 MG/20 ML VIAL ONE (11:48)
[2017-12-24] MEDS ORDERED: SUGAMMADEX SODIUM 200 MG/2 ML VIAL IVP ONE (13:06)
[2017-12-24] MEDS ORDERED: METOCLOPRAMIDE 10 MG/2 ML VIAL IVP PRN (13:34)
[2017-12-24] MEDS ORDERED: OXYCODONE/APAP 5/325 TAB PO PRN (13:34)
[2017-12-24] MEDS ORDERED: METOCLOPRAMIDE 10 MG TAB PO PRN (13:34)
[2017-12-24] MEDS ORDERED: KETOROLAC 15 MG/1 ML SDV IVP PRN (13:34)
[2017-12-24] MEDS ORDERED: HYDROCODONE/APAP 5/325 TAB PO PRN (13:34)
[2017-12-24] MEDS ORDERED: ONDANSETRON 4 MG/2 ML VIAL IVP PRN (13:42)
[2017-12-24] MEDS ORDERED: LR 500 ML IV PRN (13:42)
[2017-12-24] MEDS ORDERED: ALBUTEROL 3 ML DEYVIAL IH PRN (13:42)
[2017-12-24] MEDS ORDERED: NALOXONE HCL 0.4 MG/ML INJ IVP PRN (13:42)
--- NOTE | 2017-12-24 13:42 | POSTANESTH ---
Post Anesthetic Evaluation Cardiovascular Status: Normal, Stable Respiratory Status: Normal, Stable Level of Consciousness/Mental Status: Can Participate in Eval Pain Control: Adequate, Prn Tx Ordered Nausea/Vomiting Control: Adequate, Prn Tx Ordered Complications Possibly Related to Anesthesia: None Noted
[2017-12-24] MEDS ORDERED: MEPERIDINE 25 MG/0.5 ML AMP IVP ONE (13:51)
[2017-12-24] MEDS ORDERED: MEPERIDINE 25 MG/0.5 ML AMP ONE (13:52)
[2017-12-24] MEDS ORDERED: HYDROmorphONE/DILAUDID 2 MG/ML INJ ONE (13:53)
--- NOTE | 2017-12-24 13:55 | PDCTREPORT ---
Cardiothoracic Procedure Rpt Cardiothoracic Procedure Report: Left mini thoracotomy and decortication Intercostal nerve blocks ribs 5,6,7,8 using marcaine findings: small abscess perforated into pleural space, cultures obtained Patient Problems: Problems Problem Status Onset Abscess of lung with pneumonia Acute Septic shock Acute
[2017-12-24] MEDS: HYDROmorphONE/DILAUDID 2 MG/ML INJ IVP PRN ×4 (14:02→14:53)
[2017-12-24] MEDS ORDERED: KETOROLAC 30 MG/1 ML SDV ONE (14:32)
[2017-12-24] MEDS ORDERED: HYDROmorphONE/DILAUDID 1 MG/ML INJ IVP PRN (14:34)
[2017-12-24] MEDS: KETOROLAC 30 MG/1 ML SDV IVP PRN ×2 (14:36→20:45)
[2017-12-24] MEDS: HYDROmorphONE/DILAUDID 2 MG TAB PO PRN (17:19)
[2017-12-24] MEDS ORDERED: NS 1,000 ML IV SCH (20:00)
[2017-12-24] MEDS: PANTOPRAZOLE SODIUM 40 MG TAB PO SCH (20:45)
[2017-12-24] MEDS: CALCIUM CARBONATE 500 MG CHEWABLE TAB PO PRN (20:46)
[2017-12-24] MEDS ORDERED: SENNOSIDES/DOCUSATE SODIUM TAB PO PRN (21:00)
--- NOTE | 2017-12-24 21:07 | HOSPPROG ---
Hospitalist Progress Note Assessment/Plan: Assessment: 37 yo M p/w MSSA empyema Plan: # R sided MSSA empyema. POA, acute, POD#0 s/p decortication by Dr. Goodson -appreciate ongoing ID consult, cont CTX/flagyl but if only MSSA growing, will narrow to Ancef -d/w Dr. 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 Hypotensive and requiring pressor support, has been weaned off levophed/vasopressin # Coagulopathy. 2/2 septic shock, resolved # Anemia. Likely 2/2 marrow suppression/inflammation from above, monitor post-op Diet. Regular when safe, IVF o/n PPx. High risk, SCDs, consider lovenox in AM Code. Full Dispo. ADD uncertain, ongoing chest tubes. High level of medical complexity, high risk for worsening morbidity/mortality 2/ 2 issues outlined above. Subjective: ongoing L chest pain Objective: Vital Signs Temp Pulse Resp BP Pulse Ox 36.4 C 77 15 127/69 H 99 12/24/17 15:10 12/24/17 18:00 12/24/17 18:00 12/24/17 18:00 12/24/17 18:00 Microbiology 12/24/17 12:43 Gram Stain - Final Pleural Fluid - Swab 12/21/17 12:30 Gram Stain - Final Bronchial Washing - Left Lower Lobe Bronchial Culture - Final Staphylococcus Aureus 12/21/17 12:30 Mycobacterial Smear (HOLLIE) - Final Lung Left Lower Lobe - Bronchial Washings Laboratory Results 12/24/17 06:45 12/23/17 06:00 12/23/17 12/24/17 12/25/17 05:59 05:59 05:59 Intake Total 4364 2078 3830 Output Total 998 2110 365 Balance 3366 -32 3465 PT 18.0 SEC (12.0-15.0) H 12/21/17 13:05 INR 1.47 (0.83-1.16) H 12/21/17 13:05 - Physical Exam Constitutional: appears nourished, uncomfortable, No no apparent distress (mild) , No not in pain (moderate) Cardiovascular: No systolic murmur, No irregularly irregular, No tachycardia, No edema Respiratory: reduced air movement (L base), rhonchi (on insp L base), other ( two large chest tubes in place, bloody output), No expiratory wheeze, No bronchial breath sounds Gastrointestinal: soft, non-tender abdomen, no palpable masses, No normoactive bowel sounds (hypoactive bowel sounds) Psychiatric: interacting appropriately, anxious, flat affect, No agitated ICD10 Worksheet Patient Problems: Problems Problem Status Onset Abscess of lung with pneumonia Acute Septic shock Acute
[2017-12-24] MEDS: ZOLPIDEM TARTRATE 5 MG TAB PO SCH (22:17)
[2017-12-25] MEDS: KETOROLAC 30 MG/1 ML SDV IVP PRN ×3 (03:09→20:35)
[2017-12-25] MEDS: HYDROCODONE/APAP 10/325 TAB PO PRN ×3 (04:16→18:39)
--- NOTE | 2017-12-25 07:14 | SOAPPROG ---
SOAP Progress Note Assessment/Plan: Assessment: POD#1 left mini thoracotomy with decortication, debridement small abscess, and intercostal nerve block Necrotizing MSSA left lower lobe pneumonia with abscess, empyema and resp failure - Taken to OR yest for washout and decortication. Improved aeration without air leak. Extubated without incident. No pressor support. Sig fluid overload. Await culture results. Antibiotics per ID. Plan: CTs to waterseal. Stop IVF. Trial low dose lasix. Inc activity. 12/25/17 07:12 Subjective: Comfortable from a breathing standpoint. O/W feels swollen all over, especially in his feet. Objective: Vital Signs Temp Pulse Resp BP Pulse Ox 36.6 C 79 16 110/62 92 12/25/17 04:00 12/25/17 04:00 12/25/17 04:00 12/25/17 04:00 12/25/17 04:00 Microbiology 12/24/17 12:43 Gram Stain - Final Pleural Fluid - Swab 12/21/17 12:30 Gram Stain - Final Bronchial Washing - Left Lower Lobe Bronchial Culture - Final Staphylococcus Aureus Laboratory Results 12/25/17 04:20 12/25/17 04:20 12/24/17 12/25/17 12/26/17 05:59 05:59 05:59 Intake Total 2078 6288 Output Total 2110 365 250 Balance -32 5923 -250 PT 18.0 SEC (12.0-15.0) H 12/21/17 13:05 INR 1.47 (0.83-1.16) H 12/21/17 13:05 Intraop GS no org. CXR-> no PTX, left basilar atelectasis, inc pulm edema HR, rhythm, BP and renal fx ok. Downtrending WBC. Grossly positive fluid balance/retention. Physical Exam - Physical Exam General Appearance: alert, no apparent distress Respiratory: lungs clear (upper airways), crackles (left base), other (CTs x 2 y -d to pleurovac, serosang drainage, +tidal, no air leak) Cardiac/Chest: regular rate, rhythm Abdomen: non-tender, soft Skin: warm/dry Extremities: swelling (2-3+) ICD10 Worksheet Patient Problems: Problems Problem Status Onset Abscess of lung with pneumonia Acute Septic shock Acute
[2017-12-25] MEDS ORDERED: POTASSIUM CL 20 MEQ TAB PO ONE (07:40)
[2017-12-25] MEDS ORDERED: FUROSEMIDE 20 MG/2 ML VIAL IVP ONE (07:40)
--- NOTE | 2017-12-25 08:01 | GOP ---
DATE OF OPERATION: 12/24/2017 SURGEON: Javier Lawrence MD HORTICULTURE/FLORICULTURE TEACHER: Keith Reyes PA-C. PREOPERATIVE DIAGNOSIS: Left-sided empyema. POSTOPERATIVE DIAGNOSIS: Left-sided empyema. PROCEDURE PERFORMED: 1. Left median thoracotomy and decortication of upper and lower lobes. 2. Intercostal nerve blocks at ribs 4, 5, 6, and 7. FINDINGS: The chest wall on the left side was edematous. The pleural space had a large amount of lo culated fluid. The left lower lobe was trapped. Half of the left upper lobe was also involved. INDICATIONS: The patient is a 37-year-old gentleman with a several-month history of fever, weight lo ss, and cough. He recently presented to the emergency department with pneumonia, was admitted to the hospital. He had a bronchoscopy and there is now evidence of Staphylococcus pneumoniae on the left side. He has a drain in place and he has a rising white count. He is now taken to the operating wood m for decortication. DESCRIPTION OF PROCEDURE: We decorticated both lungs and identified as a source a perforated abscess posterolateral in the left lower lobe. This was debrided slightly and then again, the chest was certified flex endoscope reprocessor iously irrigated after decortication. Two chest tubes were placed. These were both 36-[place] and we re placed in the anterior and posterior, and basilar positions. Once this had been completed, the raffy ng was ventilated. The ribs were reapproximated with #2 paracostal sutures. The subcutaneous muscul ature and skin were closed with running Vicryl and Monocryl sutures. The patient tolerated the proce dure well. /[id number]/MODL
[2017-12-25] MEDS ORDERED: NS 500 ML IV ONE (08:09)
--- NOTE | 2017-12-25 08:37 | PDINTPN ---
Signal System Testing Maintainer Progress Note Assessment/Plan: Assessment/plan: * Necrotizing Pneumonia. White blood cell count up some. -continue antibiotics per Infectious Disease * Empyema-status post decortication. Chest x-ray reveals small tiny pneumothorax but markedly improved -will check CT scan of chest in morning * Septic shock-resolved. Off pressors. * Acute respiratory failure secondary to above -on minimal FiO2 * Pain-well controlled * Nutrition-adequate * VTE prophylaxis * Stress ulcer prophylaxis * Ambulation-doing well * Disposition-will transfer to medical surgical floor Subjective: Sitting up in chair. Just finished ambulating with physical therapy. Pain well controlled. Denies any breathlessness. Minimal cough. Objective: Vital Signs Temp Pulse Resp BP Pulse Ox 36.6 C 79 16 110/62 92 12/25/17 04:00 12/25/17 04:00 12/25/17 04:00 12/25/17 04:00 12/25/17 04:00 Microbiology 12/24/17 12:43 Gram Stain - Final Pleural Fluid - Swab 12/21/17 12:30 Gram Stain - Final Bronchial Washing - Left Lower Lobe Bronchial Culture - Final Staphylococcus Aureus Laboratory Results 12/25/17 04:20 12/25/17 04:20 12/24/17 12/25/17 12/26/17 05:59 05:59 05:59 Intake Total 2078 6288 Output Total 2110 365 250 Balance -32 5923 -250 PT 18.0 SEC (12.0-15.0) H 12/21/17 13:05 INR 1.47 (0.83-1.16) H 12/21/17 13:05 Chest [id number] by myself. Central line in good position. Chest tubes x2 in good position. There is a tiny left apical pneumothorax. Infiltrate present bilaterally. - Time Spent With Patient Time Spent With Patient: 35 min of time spent with patient, over 1/2 involved with coordination of care or counseling. Physical Exam - Physical Exam General Appearance: WD/WN, alert, no apparent distress EENT: PERRL/EOMI, normal ENT inspection Neck: non-tender, full range of motion, supple, normal inspection Respiratory: crackles (Bibasilar left greater than right), No respiratory distress, No accessory muscle use, No wheezing Cardiac/Chest: normal peripheral pulses, regular rate, rhythm Peripheral Pulses: 2+: carotid (R), carotid (L), femoral (R), femoral (L), dorsalis-pedis (R), dorsalis-pedis (L) Abdomen: normal bowel sounds, non-tender, soft Male Genitalia: deferred Rectal: deferred Skin: normal color, warm/dry Extremities: normal range of motion, non-tender, normal inspection, normal capillary refill Neuro/Psych: alert, normal mood/affect, oriented x 3 ICD10 Worksheet Patient Problems: Problems Problem Status Onset Abscess of lung with pneumonia Acute Septic shock Acute
[2017-12-25] MEDS: FAMOTIDINE 20 MG TAB PO SCH ×2 (08:45→20:35)
[2017-12-25] MEDS: PANTOPRAZOLE SODIUM 40 MG TAB PO SCH (08:45)
[2017-12-25] MEDS: AZELAIC ACID TP SCH (09:29)
[2017-12-25] MEDS: ENOXAPARIN 40 MG/0.4 ML SYR SC SCH (09:43)
[2017-12-25] MEDS: GUAIFENESIN/DM 10 ML UDCUP PO PRN ×2 (09:54→13:50)
--- NOTE | 2017-12-25 10:55 | PCMIDPN ---
Assessment/Plan: 1. Large left-sided empyema/necrotizing pneumonia status post VATS: Long conversation with patient today; also pored over chart again. Because of his insidious clinical presentation, and the fact that nothing has grown from the 200 cc of pus originally removed from the chest tube, strongly feel that the most likely etiologic agent is an oral anaerobe that is difficult to grow in culture. If MSSA (rare MSSA isolated from bronchoscopy) were the seasonal delivery driver of his infection, would expect MSSA everywhere (especially in empyema fluid). Taking this into account, will simplify antibiotics to ertapenem, which will cover Staph aureus as well as anaerobic pathogens. This will be easier for the patient to manage at home as well. After our long conversation today, the patient expressed understanding and all questions were answered. PICC line likely tomorrow. Over 25 min spent with this patient today. Subjective: Status post VATS. Operative note noted a trapped left lower lobe. Patient is feeling better today. Still some discomfort when he coughs. No diarrhea. Proceeded to have long conversation with patient today about the course of events leading up to his hospitalization. Objective: Ceftriaxone 2 g IV daily day 5 Metronidazole 5 mg IV q.8 hours day for No fevers 96% on room air Vital Signs Temp Pulse Resp BP Pulse Ox 36.6 C 108 H 16 110/62 96 12/25/17 04:00 12/25/17 07:58 12/25/17 04:00 12/25/17 04:00 12/25/17 07:58 Microbiology 12/24/17 12:43 Gram Stain - Final Pleural Fluid - Swab 12/21/17 12:30 Gram Stain - Final Bronchial Washing - Left Lower Lobe Bronchial Culture - Final Staphylococcus Aureus Laboratory Results 12/25/17 04:20 12/25/17 04:20 12/24/17 12/25/17 12/26/17 05:59 05:59 05:59 Intake Total 7335 6201 Output Total 9438 365 250 Balance -32 5923 -250 VATS Gram stain 4+ PMNs no organisms cultures are pending Bronchoscopy with rare MSSA - Physical Exam General Appearance: alert, no apparent distress EENT: pharynx normal, No thrush Respiratory: other (Diminished breath sounds left base. Chest tube in place.) Neck: other (Right IJ looks fine) Cardiac/Chest: regular rate, rhythm, No systolic murmur Abdomen: non-tender, soft Skin: No rash, No embolic lesions ICD10 Worksheet Patient Problems: Problems Problem Status Onset Abscess of lung with pneumonia Acute Septic shock Acute
[2017-12-25] MEDS: HYDROmorphONE/DILAUDID 2 MG TAB PO PRN (11:48)
--- NOTE | 2017-12-25 17:48 | HOSPPROG ---
Hospitalist Progress Note Assessment/Plan: Assessment: 37 yo M p/w MSSA empyema Plan: # R sided MSSA empyema. POA, acute, POD#1 s/p decortication by Dr. Goodson, described loculated fluid trapped in LLL and consuming 1/2 ADAL -d/w Dr. Gardner, she recs cont CTX/flagyl given that MSSA may not be the true causative organism, presenting much more like oral ezra -check chest CT in AM to gauge resolution -PO/IV dilaudid ordered for post-op pain -add guaif/codeine PRN -responded well to IV lasix today, replete K, repeat lasix 40mg IV tomorrow AM BP permitting # Septic chock. Hypotensive and requiring pressor support, has been weaned off levophed/vasopressin # Coagulopathy. 2/2 septic shock, resolved # Anemia. Likely 2/2 marrow suppression/inflammation from above, monitor post-op # Atelectasis. Acute, 2/2 splinting from pain and compression, present on CXR ( personally interpreted), IS Diet. Regular when safe, IVF o/n PPx. High risk, SCDs, consider lovenox in AM Code. Full Dispo. ADD uncertain, ongoing chest tubes. High level of medical complexity, high risk for worsening morbidity/mortality 2/ 2 issues outlined above. Subjective: pain w/ cough, tired from visitors, polyuria this AM Objective: Vital Signs Temp Pulse Resp BP Pulse Ox 36.8 C 94 21 H 86/53 L 92 12/25/17 15:55 12/25/17 15:55 12/25/17 15:55 12/25/17 15:55 12/25/17 15:55 Microbiology 12/24/17 12:43 Gram Stain - Final Pleural Fluid - Swab Laboratory Results 12/25/17 04:20 12/25/17 04:20 12/24/17 12/25/17 12/26/17 05:59 05:59 05:59 Intake Total 2078 6288 1100 Output Total 2110 365 250 Balance -32 5923 850 PT 18.0 SEC (12.0-15.0) H 12/21/17 13:05 INR 1.47 (0.83-1.16) H 12/21/17 13:05 - Physical Exam Constitutional: no apparent distress, appears nourished, uncomfortable, No not in pain (mild) Cardiovascular: regular rate and rhythym, no murmur, rub, or gallop, edema ( trace bilat LE) Respiratory: reduced air movement (L base), inspiratory crackles (bilat, L>R), No expiratory wheeze, No bronchial breath sounds Gastrointestinal: normoactive bowel sounds, soft, non-tender abdomen, No guarding, No distension Skin: No erythema (around CT site) Neurologic: AAOx3 Psychiatric: interacting appropriately, not anxious, not encephalopathic, thought process linear, other (fatigued) ICD10 Worksheet Patient Problems: Problems Problem Status Onset Abscess of lung with pneumonia Acute Septic shock Acute
[2017-12-25] MEDS: ZOLPIDEM TARTRATE 5 MG TAB PO SCH (20:34)
[2017-12-25] MEDS: SENNOSIDES/DOCUSATE SODIUM TAB PO SCH (20:34)
[2017-12-25] MEDS: guaiFENesin/CODEINE PHOS 10 ML UDCUP PO PRN (20:35)
[2017-12-26] MEDS: KETOROLAC 30 MG/1 ML SDV IVP PRN ×4 (02:35→21:44)
[2017-12-26] MEDS: HYDROCODONE/APAP 10/325 TAB PO PRN ×3 (04:50→21:44)
[2017-12-26] MEDS: guaiFENesin/CODEINE PHOS 10 ML UDCUP PO PRN ×3 (04:58→21:44)
[2017-12-26 05:19] LABS: PLATELET COUNT 396 10^3/uL (150-400)
[2017-12-26] MEDS ORDERED: POTASSIUM CL 20 MEQ TAB PO ONE (06:50)
--- NOTE | 2017-12-26 06:50 | SOAPPROG ---
SOAP Progress Note Assessment/Plan: Assessment: POD#2 left mini thoracotomy with decortication, debridement small abscess, and intercostal nerve block Necrotizing left lower lobe pneumonia with abscess, empyema and resp failure - Taken to OR for washout and decortication of trapped lung. Improved aeration without active air leak. Extubated without incident. No further pressor support. Active diuresis of significant fluid overload in progress. Await final culture results. Antibiotics per ID. Plan: Await CT scan. May be able to remove apical chest tube. Keep posterior CT until output < 50 ml/24 hr. Intensify IV diuresis. Replete K. Cont inc activity as tolerated. 12/26/17 06:47 Subjective: Better every day. Slept well. Light activity well tolerated. Less puffy. +BM. No acute concerns. Objective: Vital Signs Temp Pulse Resp BP Pulse Ox 36.6 C 76 20 110/57 L 96 12/25/17 20:00 12/25/17 23:59 12/25/17 23:59 12/25/17 23:59 12/25/17 23:59 Microbiology 12/24/17 12:43 Gram Stain - Final Pleural Fluid - Swab Laboratory Results 12/26/17 04:30 12/26/17 04:30 12/25/17 12/26/17 12/27/17 05:59 05:59 05:59 Intake Total 6288 2850 Output Total 365 735 Balance 5923 2115 PT 18.0 SEC (12.0-15.0) H 12/21/17 13:05 INR 1.47 (0.83-1.16) H 12/21/17 13:05 Cardioresp status stable. Off O2. UOP not tallied but subjectively copious. Downtrending CTOP. Physical Exam - Physical Exam General Appearance: alert, no apparent distress Respiratory: other (coarse rt sided BS, CTs x 2 y-d to pleurovac, serous drainage, +tidal, no air leak w cough) Cardiac/Chest: regular rate, rhythm Abdomen: non-tender, soft Skin: warm/dry Extremities: swelling (2+ gen) ICD10 Worksheet Patient Problems: Problems Problem Status Onset Abscess of lung with pneumonia Acute Septic shock Acute
[2017-12-26] MEDS: AZELAIC ACID TP SCH (08:27)
[2017-12-26] MEDS ORDERED: FUROSEMIDE 40 MG/4 ML VIAL IVP SCH ×3 (09:00)
[2017-12-26] MEDS ORDERED: FUROSEMIDE 20 MG/2 ML VIAL IVP SCH (09:00)
[2017-12-26] MEDS: ENOXAPARIN 40 MG/0.4 ML SYR SC SCH (09:41)
[2017-12-26] MEDS: POTASSIUM CL 20 MEQ TAB PO SCH (09:44)
[2017-12-26] MEDS: PANTOPRAZOLE SODIUM 40 MG TAB PO SCH (09:45)
[2017-12-26] MEDS: SENNOSIDES/DOCUSATE SODIUM TAB PO SCH (09:46)
[2017-12-26] MEDS: FAMOTIDINE 20 MG TAB PO SCH (09:47)
--- NOTE | 2017-12-26 10:03 | PCMIDPN ---
Assessment/Plan: 1. Large left-sided empyema/necrotizing pneumonia status post VATS: As per my note yesterday, strongly feel that the MSSA in bronch wash is a red jiménez. Suspect clinical presentation and evolution of empyema is likely secondary to a fastidious pathogen, such as Strep intermedius versus other. Would continue ertapenem as is, which will cover MSSA and oral anaerobes. Await CT scan results. May be able to have apical chest tube removed today. No new recommendations at this point in time. Appreciate CT surgical service assistance. Subjective: Ran into patient as he was being wheeled to the CT scanner. No complaints. His usual smiling self. No diarrhea. Objective: Ertapenem 1 g IV daily day 1 (antibiotics day 6) No fevers 94% on room air Vital Signs Temp Pulse Resp BP Pulse Ox 36.6 C 88 16 99/55 L 94 12/26/17 08:00 12/26/17 08:00 12/26/17 08:00 12/26/17 08:00 12/26/17 08:00 Microbiology 12/21/17 08:32 Blood Culture - Final Blood 12/21/17 08:32 Blood Culture - Final Blood 12/24/17 12:43 Gram Stain - Final Pleural Fluid - Swab Laboratory Results 12/26/17 04:30 12/26/17 04:30 12/25/17 12/26/17 12/27/17 05:59 05:59 05:59 Intake Total 0512 2707 Output Total 365 735 Balance 5923 2115 Empyema fluid, and operative specimens continue to show no growth Bronch with rare MSSA ICD10 Worksheet Patient Problems: Problems Problem Status Onset Abscess of lung with pneumonia Acute Septic shock Acute
[2017-12-26] MEDS: ERTAPENEM 1 GM in NS 100 ML IV SCH (11:39)
--- NOTE | 2017-12-26 12:29 | SOAPPROG ---
SOAP Progress Note Assessment/Plan: Assessment/plan: * Necrotizing Pneumonia. White blood cell count up some. -continue ertapenem per Infectious Disease * Empyema-status post decortication. Repeat CT scan shows improvement on the left, but increasing infiltrate and effusion on the right -follow closely * Septic shock-resolved. * Acute respiratory failure secondary to above-resolved * Pain-well controlled * Nutrition-adequate * VTE prophylaxis * Stress ulcer prophylaxis * Ambulation-doing well Subjective: Resting comfortably. Pain well tolerated. Off supplemental oxygen. Denies any breathlessness. Objective: Vital Signs Temp Pulse Resp BP Pulse Ox 36.6 C 88 16 99/55 L 94 12/26/17 08:00 12/26/17 08:00 12/26/17 08:00 12/26/17 08:00 12/26/17 08:00 Microbiology 12/24/17 12:43 Gram Stain - Final Pleural Fluid - Swab 12/21/17 08:32 Blood Culture - Final Blood 12/21/17 08:32 Blood Culture - Final Blood Laboratory Results 12/26/17 04:30 12/26/17 04:30 12/25/17 12/26/17 12/27/17 05:59 05:59 05:59 Intake Total 6288 2850 Output Total 365 735 70 Balance 5923 2115 -70 PT 18.0 SEC (12.0-15.0) H 12/21/17 13:05 INR 1.47 (0.83-1.16) H 12/21/17 13:05 - Time Spent With Patient Time Spent With Patient: 25 min of time spent with patient, over 1/2 involved with coordination of care or counseling. Case discussed with nursing Physical Exam - Physical Exam General Appearance: WD/WN, alert, no apparent distress EENT: PERRL/EOMI Neck: non-tender, full range of motion, supple, normal inspection Respiratory: crackles (Bibasilar), No respiratory distress, No wheezing Cardiac/Chest: normal peripheral pulses, regular rate, rhythm Abdomen: normal bowel sounds, non-tender, soft Male Genitalia: deferred Rectal: deferred Skin: normal color, warm/dry Extremities: normal range of motion, non-tender, normal inspection, normal capillary refill Neuro/Psych: no motor/sensory deficits, alert, normal mood/affect, oriented x 3 ICD10 Worksheet Patient Problems: Problems Problem Status Onset Abscess of lung with pneumonia Acute Septic shock Acute
--- NOTE | 2017-12-26 13:20 | ASMTCMCOM ---
CM Note CM Note Notes: PT/OT have cleared patient to d/c independent. CM available if d/c needs arise. Date Signed: 12/26/2017 01:19 PM Electronically Signed By:Dena Brewer LCSW
[2017-12-26] MEDS: FUROSEMIDE 40 MG/4 ML VIAL IVP SCH (15:23)
--- NOTE | 2017-12-26 16:44 | HOSPPROG ---
Hospitalist Progress Note Assessment/Plan: Assessment: 37 yo M p/w empyema, bilateral pneumonia c/b acute RLL pleural effusion Plan: # L sided empyema. POA, acute, POD#2 s/p decortication by Dr. Goodson, CT w/ R apical chest tube unlikely to be draining, inferior one adjacent to loculated areas of fluid collection -adjusted to ertapenem per ID given likelihood that offending agent is oral anaerobic ezra and NOT MSSA (unlikely per Dr. Gardner) -PO/IV dilaudid + toradol ordered for post-op pain -added guaif/codeine PRN w/ good effect -cont inferior chest tube -counseled patient extensively regarding the above, shared the CT images with him # Pleural effusion. Acute, right sided, likely 2/2 fluid resuscitation and ongoing air space disease -responded well to IV lasix, d/w CT surg, recommend 40mg IV bid given ongoing effusion on CT # Bilateral pneumonia. Suspect POA, dense consolidations on CT separate from abscess, cont IV abx as above # Septic chock. Hypotensive and requiring pressor support, off levophed/ vasopressin # Coagulopathy. 2/2 septic shock, resolved # Anemia. Likely 2/2 marrow suppression/inflammation from above, monitor post-op # Atelectasis. Acute, 2/2 splinting from pain and compression, IS Diet. Regular PPx. High risk, lovenox 40 Code. Full Dispo. ADD uncertain, ongoing chest tubes. Subjective: ongoing chest discomfort, cough Objective: Vital Signs Temp Pulse Resp BP Pulse Ox 36.7 C 88 18 104/54 L 93 12/26/17 16:00 12/26/17 16:00 12/26/17 16:00 12/26/17 16:00 12/26/17 16:00 Microbiology 12/24/17 12:43 Gram Stain - Final Pleural Fluid - Swab 12/21/17 08:32 Blood Culture - Final Blood 12/21/17 08:32 Blood Culture - Final Blood Laboratory Results 12/26/17 04:30 12/26/17 12:45 12/25/17 12/26/17 12/27/17 05:59 05:59 05:59 Intake Total 6252 2850 Output Total 365 735 70 Balance 5923 2115 -70 PT 18.0 SEC (12.0-15.0) H 12/21/17 13:05 INR 1.47 (0.83-1.16) H 12/21/17 13:05 - Time Spent With Patient Time Spent with Patient: greater than 35 minutes Time Spent with Patient: Greater than 35 minutes spent on this patients care, greater than 50% of time spent counseling, educating, and coordinating care regarding the above mentioned plan. - Physical Exam Constitutional: no apparent distress, uncomfortable, No not in pain (mild) Cardiovascular: edema (trace bilat LE), No irregularly irregular, No tachycardia Respiratory: reduced air movement (R base), rhonchi (on insp L base), other ( cough w/ speaking), No expiratory wheeze, No bronchial breath sounds Neurologic: AAOx3, No weakness Psychiatric: interacting appropriately, not anxious, not encephalopathic, thought process linear ICD10 Worksheet Patient Problems: Problems Problem Status Onset Abscess of lung with pneumonia Acute Septic shock Acute
[2017-12-26] MEDS: ZOLPIDEM TARTRATE 5 MG TAB PO SCH (21:44)
[2017-12-26] MEDS: SENNOSIDES/DOCUSATE SODIUM TAB PO PRN (21:44)
[2017-12-27 05:24] LABS: PLATELET COUNT 397 10^3/uL (150-400)
[2017-12-27] MEDS: guaiFENesin/CODEINE PHOS 10 ML UDCUP PO PRN (05:27)
[2017-12-27] MEDS: HYDROCODONE/APAP 10/325 TAB PO PRN ×3 (05:27→16:25)
[2017-12-27] MEDS: AZELAIC ACID TP SCH (08:47)
[2017-12-27] MEDS: PANTOPRAZOLE SODIUM 40 MG TAB PO SCH (08:52)
[2017-12-27] MEDS: ENOXAPARIN 40 MG/0.4 ML SYR SC SCH (08:52)
[2017-12-27] MEDS: POTASSIUM CL 20 MEQ TAB PO SCH ×2 (08:52→20:56)
[2017-12-27] MEDS: FUROSEMIDE 40 MG/4 ML VIAL IVP SCH ×2 (08:52→16:26)
[2017-12-27] MEDS: ERTAPENEM 1 GM in NS 100 ML IV SCH (08:52)
--- NOTE | 2017-12-27 10:00 | SOAPPROG ---
SOAP Progress Note Assessment/Plan: Assessment/plan: * Necrotizing Pneumonia. Strep on culture -continue ertapenem per Infectious Disease * Empyema-status post decortication. Repeat CT scan shows improvement on the left. Chest x-ray today is improved. * Septic shock-resolved. * Acute respiratory failure secondary to above-resolved * Pain-well controlled * Nutrition-adequate * VTE prophylaxis * Stress ulcer prophylaxis * Ambulation-doing well Subjective: Sitting up in chair. Resting comfortably. Pain well controlled. No other current complaints. Objective: Vital Signs Temp Pulse Resp BP Pulse Ox 36.6 C 76 16 110/57 L 90 L 12/27/17 08:40 12/27/17 08:40 12/27/17 08:40 12/27/17 08:40 12/27/17 08:40 Microbiology 12/24/17 12:43 Gram Stain - Final Pleural Fluid - Swab 12/21/17 08:32 Blood Culture - Final Blood 12/21/17 08:32 Blood Culture - Final Blood Laboratory Results 12/27/17 05:10 12/27/17 05:10 12/26/17 12/27/17 12/28/17 05:59 05:59 05:59 Intake Total 2850 1200 Output Total 735 360 Balance 2115 840 PT 18.0 SEC (12.0-15.0) H 12/21/17 13:05 INR 1.47 (0.83-1.16) H 12/21/17 13:05 Laboratory Results 12/27/17 05:10 12/27/17 05:10 12/24/17 12:43 Gram Stain - Final Pleural Fluid - Swab Anaerobic Culture - Preliminary Streptococcus Intermedius Chest x-ray by myself. Central line in good position. Single chest tube on the left despite good position. There is a tiny apical pneumothorax on the left. Better aeration throughout. - Time Spent With Patient Time Spent With Patient: 25 min of time spent with patient, over 1/2 involved with coordination of care or counseling. Physical Exam - Physical Exam General Appearance: WD/WN, alert, no apparent distress EENT: PERRL/EOMI Neck: non-tender, full range of motion Respiratory: crackles (Bibasilar left greater than right), other (Chest tube with air leak), No respiratory distress, No wheezing Cardiac/Chest: normal peripheral pulses, regular rate, rhythm Peripheral Pulses: 2+: carotid (R), carotid (L), femoral (R), femoral (L), dorsalis-pedis (R), dorsalis-pedis (L) Abdomen: normal bowel sounds, non-tender, soft Male Genitalia: deferred Rectal: deferred Skin: normal color, warm/dry Extremities: non-tender Neuro/Psych: no motor/sensory deficits, alert, normal mood/affect, oriented x 3 ICD10 Worksheet Patient Problems: Problems Problem Status Onset Abscess of lung with pneumonia Acute Septic shock Acute
--- NOTE | 2017-12-27 10:07 | HOSPPROG ---
Hospitalist Progress Note Assessment/Plan: # L sided empyema/abscess s/p VATS - d/t strep intermedius; agree that clinical presentation not c/w MSSA - cont invanz per ID - one chest tube remains - tiny apical ptx # septic shock - resolved, off pressors # vol overload - cont diuresis with lasix IV # subtle anteroseptal hypokinesis - doubt clinically associated with current presentation Subjective: sitting in chair; ambulating; +cough Objective: Vital Signs Temp Pulse Resp BP Pulse Ox 36.6 C 76 16 110/57 L 90 L 12/27/17 08:40 12/27/17 08:40 12/27/17 08:40 12/27/17 08:40 12/27/17 08:40 Microbiology 12/24/17 12:43 Gram Stain - Final Pleural Fluid - Swab 12/21/17 08:32 Blood Culture - Final Blood 12/21/17 08:32 Blood Culture - Final Blood Laboratory Results 12/27/17 05:10 12/27/17 05:10 12/26/17 12/27/17 12/28/17 05:59 05:59 05:59 Intake Total 2850 1200 Output Total 735 360 Balance 2115 840 PT 18.0 SEC (12.0-15.0) H 12/21/17 13:05 INR 1.47 (0.83-1.16) H 12/21/17 13:05 chart reviewed CXR personally reviewed - Physical Exam Constitutional: appears nourished Cardiovascular: regular rate and rhythym, no murmur, rub, or gallop Respiratory: no respiratory distress, no rales or rhonchi, other (significantly diminished L sided BS), No bronchial breath sounds Gastrointestinal: soft, non-tender abdomen, no palpable masses, No guarding, No rebound, No distension ICD10 Worksheet Patient Problems: Problems Problem Status Onset Abscess of lung with pneumonia Acute Septic shock Acute
--- NOTE | 2017-12-27 10:56 | PCMIDPN ---
Assessment/Plan: Assessment: Left-sided empyema-looks like a secondary process to an initial upper respiratory infection by history. Culture of the thoracic fluid is now growing Streptococcus intermedius. This makes perfect sense given history of disease. He has been covered currently with ertapenem and tolerating this medication without issue. He is status post VATS as well. Apical chest tube removed yesterday. Plan: 1. Continue ertapenem 1 g daily. 2. Follow chest tube output. 3. Follow up pending culture data. 12/22/17 12:58 12/27/17 11:03 Subjective: Patient is resting comfortably in his hospital bed. He remains in good spirits. No new complaints. Able to breathe deeper than he was on Friday. No fevers or chills. Continues to have a productive cough. Objective: Ertapenem # 2 (abx #7) Vital Signs Temp Pulse Resp BP Pulse Ox 36.6 C 76 16 110/57 L 90 L 12/27/17 08:40 12/27/17 08:40 12/27/17 08:40 12/27/17 08:40 12/27/17 08:40 Microbiology 12/24/17 12:43 Gram Stain - Final Pleural Fluid - Swab 12/21/17 08:32 Blood Culture - Final Blood 12/21/17 08:32 Blood Culture - Final Blood Laboratory Results 12/27/17 05:10 12/27/17 05:10 12/26/17 12/27/17 12/28/17 05:59 05:59 05:59 Intake Total 2850 1200 Output Total 735 360 Balance 2115 840 - Physical Exam General Appearance: WD/WN, alert, no apparent distress, non-toxic Respiratory: normal breath sounds, crackles (Left lower lobe), No lungs clear Cardiac/Chest: regular rate, rhythm, No tachycardia Skin: normal color, warm/dry, No rash Neuro/Psych: alert, normal mood/affect, oriented x 3 ICD10 Worksheet Patient Problems: Problems Problem Status Onset Abscess of lung with pneumonia Acute Septic shock Acute
--- NOTE | 2017-12-27 11:06 | SOAPPROG ---
SOAP Progress Note Assessment/Plan: Assessment: POD#3 s/p left mini thoracotomy with decortication, debridement of small abscess for MSSA empyema R sided MSSA empyema s/p decortication by Dr. Goodson who described loculated fluid trapped in LLL and consuming 1/2 ADAL -Culture of the thoracic fluid growing Streptococcus intermedius. On Ertapenem per ID who is following. -Chest CT yesterday showed improvement of left consolidation but slight worsening right consolidation. WBC stable at 11.07. -Pain controlled with [place] 10/325 and Toradol. -Will make Guaifen/Codeine a scheduled med. -Responding well to IV Lasix today. K low. Increased KCl to 40mg po BID. - Chest tube still draining. Will likely stay in place through the weekend. Septic chock. Hypotensive and requiring pressor support, has been weaned off levophed/vasopressin. Currently with SBP 100-110's. Coagulopathy. 2/2 septic shock, resolved. Anemia. Likely 2/2 marrow suppression/inflammation from above, monitor post-op. Stable H&H 9.9/29.8. Atelectasis. Acute, 2/2 splinting from pain and compression, present on CXR. Encourage ambulation/IS. Diet. Tolerating regular diet. DVT Prophylaxis. High risk. Continue SCDs and Lovenox. Code. Full Dispo. ADD uncertain, chest tube still draining. High level of medical complexity, high risk for worsening morbidity/mortality 2/ 2 issues outlined above. Subjective: Patient reports adequate pain control with [place] and Toradol. Patient states that he is having difficulty clearing his secretions. Objective: Vital Signs Temp Pulse Resp BP Pulse Ox 36.6 C 76 16 110/57 L 90 L 12/27/17 08:40 12/27/17 08:40 12/27/17 08:40 12/27/17 08:40 12/27/17 08:40 Microbiology 12/24/17 12:43 Gram Stain - Final Pleural Fluid - Swab 12/21/17 08:32 Blood Culture - Final Blood 12/21/17 08:32 Blood Culture - Final Blood Laboratory Results 12/27/17 05:10 12/27/17 05:10 12/26/17 12/27/17 12/28/17 05:59 05:59 05:59 Intake Total 2850 1200 Output Total 735 360 Balance 2115 840 PT 18.0 SEC (12.0-15.0) H 12/21/17 13:05 INR 1.47 (0.83-1.16) H 12/21/17 13:05 - Pending Discharge Pending Discharge Within 48 Hours: No Physical Exam - Physical Exam General Appearance: WD/WN, alert, no apparent distress Neck: supple Respiratory: decreased breath sounds (bases), other (no wheezing, rhonchi, rales. ) Cardiac/Chest: regular rate, rhythm, other (Left chest incision c/d/i. ) Abdomen: normal bowel sounds, non-tender, soft Skin: normal color, warm/dry Extremities: other (Warm, 1+ lower extremity pitting edema. ) Neuro/Psych: alert, normal mood/affect, oriented x 3 ICD10 Worksheet Patient Problems: Problems Problem Status Onset Abscess of lung with pneumonia Acute Septic shock Acute
[2017-12-27] MEDS: guaiFENesin/CODEINE PHOS 10 ML UDCUP PO SCH ×3 (13:08→23:08)
[2017-12-27] MEDS: ZOLPIDEM TARTRATE 5 MG TAB PO SCH (20:56)
[2017-12-27] MEDS: HYDROmorphONE/DILAUDID 2 MG TAB PO PRN (20:57)
[2017-12-28] MEDS: HYDROmorphONE/DILAUDID 2 MG TAB PO PRN ×3 (02:38→21:57)
[2017-12-28] MEDS: IPRATROPIUM/ALBUTEROL 3 ML DEYVIAL IH PRN (03:06)
[2017-12-28] MEDS: guaiFENesin/CODEINE PHOS 10 ML UDCUP PO SCH ×3 (05:58→17:35)
[2017-12-28] MEDS: FUROSEMIDE 40 MG/4 ML VIAL IVP SCH ×2 (08:55→16:06)
[2017-12-28 08:56] LABS: PLATELET COUNT 443 10^3/uL (150-400)
[2017-12-28] MEDS: PANTOPRAZOLE SODIUM 40 MG TAB PO SCH (08:56)
[2017-12-28] MEDS: ENOXAPARIN 40 MG/0.4 ML SYR SC SCH (08:56)
[2017-12-28] MEDS: POTASSIUM CL 20 MEQ TAB PO SCH ×2 (08:56→21:57)
[2017-12-28] MEDS: AZELAIC ACID TP SCH (09:00)
--- NOTE | 2017-12-28 09:25 | HOSPPROG ---
Hospitalist Progress Note Assessment/Plan: 37M with L sided empyema/abscess s/p VATS. # L sided empyema/abscess s/p VATS - subtle setbacks today - slight incr in O2, slight incr in WBC; will consider CT scan; discussed with Dr Stone - d/t strep intermedius; agree that clinical presentation not c/w MSSA - cont invanz per ID - one chest tube remains - tiny apical ptx # septic shock - resolved, off pressors # vol overload - cont diuresis with lasix IV # subtle anteroseptal hypokinesis - doubt clinically associated with current presentation Subjective: had an episode of diffuse chest pain and lower abd pain last night Objective: Vital Signs Temp Pulse Resp BP Pulse Ox 36.9 C 98 16 121/74 H 87 L 12/28/17 08:00 12/28/17 08:00 12/28/17 08:00 12/28/17 08:00 12/28/17 08:00 Microbiology 12/24/17 12:43 Gram Stain - Final Pleural Fluid - Swab Laboratory Results 12/28/17 08:36 12/28/17 08:36 12/27/17 12/28/17 12/29/17 05:59 05:59 05:59 Intake Total 1200 400 Output Total 360 3470 300 Balance 840 -3070 -300 PT 18.0 SEC (12.0-15.0) H 12/21/17 13:05 INR 1.47 (0.83-1.16) H 12/21/17 13:[address] Stone CXR personally reviewed - Physical Exam Constitutional: uncomfortable Cardiovascular: regular rate and rhythym, no murmur, rub, or gallop Respiratory: respiratory distress (mild), other (L sided CT; diminished breath soubds bilat) Gastrointestinal: soft, non-tender abdomen, No guarding, No rebound, No distension ICD10 Worksheet Patient Problems: Problems Problem Status Onset Abscess of lung with pneumonia Acute Septic shock Acute
[2017-12-28] MEDS: ERTAPENEM 1 GM in NS 100 ML IV SCH (10:10)
--- NOTE | 2017-12-28 10:17 | SOAPPROG ---
SOAP Progress Note Assessment/Plan: Assessment: POD#4 s/p left mini thoracotomy with decortication, debridement of small abscess for MSSA empyema R sided MSSA empyema s/p decortication by Dr. Goodson who described loculated fluid trapped in LLL and consuming 1/2 ADAL -Culture of the thoracic fluid growing Streptococcus intermedius. On Ertapenem per ID who is following. -Postop chest CT showed improvement of left consolidation but slight worsening right consolidation. However CXR today shows worsening bilateral lower lobe infiltrates. Patient afebrile, however supplemental O2 requirements are up to 3L today and WBC up at 15.9 (11.07). Poss Chest CT to be repeated today. -Pain controlled with [place] 10/325 and Dilaudid. -Cough persists, on Guaifen/Codeine. -Continues to duirese however patient has continued edema on CXR. Continue IV Lasix. -Chest tube still draining. Minimal residual left apical PTX. Will keep in place today. Septic chock- Initially hypotensive and requiring pressor support. Weaned off levophed/vasopressin. Currently with SBP 90-100's Coagulopathy- 2/2 septic shock, resolved. Anemia- Likely 2/2 marrow suppression/inflammation from above, monitor post-op. Stable H&H 10.8/32.4. Diet. Tolerating regular diet. DVT Prophylaxis- High risk. Continue SCDs and Lovenox. Code- Full Dispo- Chest tube still draining. High level of medical complexity, high risk for worsening morbidity/mortality 2/ 2 issues outlined above. Subjective: Patient reports increased chest pain last pm, however all pain controlled this am. Patient reports his cough is unchanged. Objective: Vital Signs Temp Pulse Resp BP Pulse Ox 36.9 C 98 16 121/74 H 87 L 12/28/17 08:00 12/28/17 08:00 12/28/17 08:00 12/28/17 08:00 12/28/17 08:00 Microbiology 12/24/17 12:43 Gram Stain - Final Pleural Fluid - Swab Laboratory Results 12/28/17 08:36 12/28/17 08:36 12/27/17 12/28/17 12/29/17 05:59 05:59 05:59 Intake Total 1200 400 Output Total 360 3470 300 Balance 840 -3070 -300 PT 18.0 SEC (12.0-15.0) H 12/21/17 13:05 INR 1.47 (0.83-1.16) H 12/21/17 13:05 Physical Exam - Physical Exam General Appearance: WD/WN, alert, no apparent distress Neck: supple Respiratory: decreased breath sounds (bases), other (no wheezing, rhonchi, rales. ) Cardiac/Chest: tachycardia, other (no murmurs, rubs, gallops. chest incision c/ d/i. ) Abdomen: normal bowel sounds, non-tender, soft Skin: normal color, warm/dry Extremities: other (Warm, improved lower extremity edema which is miild now. ) Neuro/Psych: alert, normal mood/affect, oriented x 3 ICD10 Worksheet Patient Problems: Problems Problem Status Onset Abscess of lung with pneumonia Acute Septic shock Acute
--- NOTE | 2017-12-28 13:37 | PCMIDPN ---
Assessment/Plan: Assessment: Left-sided empyema-looks like a secondary process to an initial upper respiratory infection by history. Culture of the thoracic fluid is now growing Streptococcus intermedius. This makes perfect sense given history of disease. He has been covered currently with ertapenem and tolerating this medication without issue. He is status post VATS as well. Apical chest tube removed yesterday. Repeat chest CT this morning shows a slight re-collection anteriorly where the former chest tube was placed. The 1 remaining chest tube continues to be in good position. Patient had a bit of a pain crisis overnight which was resolved with medication. He feels like he is improving clinically. Plan: 1. Continue ertapenem 1 g daily. 2. Follow chest tube output. 3. Follow up pending culture data. Subjective: Patient is sitting up in a chair in his hospital room. He had some difficulty last night around midnight when per the patient he awoke with some new types of pain. Review of medication records reveals that he had significantly decreased pain med usage the day before. Patient was without fever chills. Repeat CT scan conducted this morning. Objective: Ertapenem # 3 (# 8) Vital Signs Temp Pulse Resp BP Pulse Ox 36.9 C 98 16 121/74 H 87 L 12/28/17 08:00 12/28/17 08:00 12/28/17 08:00 12/28/17 08:00 12/28/17 08:00 Microbiology 12/24/17 12:43 Gram Stain - Final Pleural Fluid - Swab Laboratory Results 12/28/17 08:36 12/28/17 08:36 12/27/17 12/28/17 12/29/17 05:59 05:59 05:59 Intake Total 1200 400 Output Total 360 5150 675 Balance 730 -9870 -194 - Physical Exam General Appearance: WD/WN, alert, no apparent distress, non-toxic Respiratory: crackles (Left lower lobe), No normal breath sounds, No respiratory distress, No wheezing Cardiac/Chest: regular rate, rhythm, No tachycardia Skin: normal color, warm/dry, No rash Neuro/Psych: alert, normal mood/affect, oriented x 3 ICD10 Worksheet Patient Problems: Problems Problem Status Onset Abscess of lung with pneumonia Acute Septic shock Acute
--- NOTE | 2017-12-28 14:39 | SOAPPROG ---
SOAP Progress Note Assessment/Plan: Assessment/plan: * Necrotizing Pneumonia. Strep on culture -continue ertapenem per Infectious Disease * Empyema-status post decortication. Repeat CT scan shows collar a loculation on left * Respiratory-oxygen requirements have increased * Pain-well controlled * Nutrition-adequate * VTE prophylaxis * Stress ulcer prophylaxis * Ambulation-doing well Overall he feels better Subjective: Sitting up in chair. Comfortable. No current complaints. Objective: Vital Signs Temp Pulse Resp BP Pulse Ox 36.9 C 98 16 121/74 H 91 L 12/28/17 08:00 12/28/17 08:00 12/28/17 08:00 12/28/17 08:00 12/28/17 08:15 Microbiology 12/24/17 12:43 Gram Stain - Final Pleural Fluid - Swab Laboratory Results 12/28/17 08:36 12/28/17 08:36 12/27/17 12/28/17 12/29/17 05:59 05:59 05:59 Intake Total 1200 400 Output Total 360 3470 675 Balance 840 -3070 -675 PT 18.0 SEC (12.0-15.0) H 12/21/17 13:05 INR 1.47 (0.83-1.16) H 12/21/17 13:05 - Time Spent With Patient Time Spent With Patient: 25 min of time spent with patient, over 1/2 involved coordination of care or counseling. Case discussed with hospitalist Physical Exam - Physical Exam General Appearance: WD/WN, alert, no apparent distress EENT: PERRL/EOMI Neck: non-tender, full range of motion Respiratory: No respiratory distress, No crackles, No wheezing Cardiac/Chest: normal peripheral pulses, regular rate, rhythm Abdomen: normal bowel sounds, non-tender, soft Male Genitalia: deferred Rectal: deferred Skin: normal color, warm/dry Extremities: non-tender Neuro/Psych: no motor/sensory deficits, alert, normal mood/affect, oriented x 3 ICD10 Worksheet Patient Problems: Problems Problem Status Onset Abscess of lung with pneumonia Acute Septic shock Acute
[2017-12-28] MEDS: HYDROCODONE/APAP 10/325 TAB PO PRN (16:06)
[2017-12-28] MEDS: ZOLPIDEM TARTRATE 5 MG TAB PO SCH (21:57)
[2017-12-29] MEDS: guaiFENesin/CODEINE PHOS 10 ML UDCUP PO SCH ×5 (00:15→22:51)
[2017-12-29] MEDS: IPRATROPIUM/ALBUTEROL 3 ML DEYVIAL IH PRN (03:53)
[2017-12-29] MEDS: HYDROmorphONE/DILAUDID 2 MG TAB PO PRN ×4 (04:18→22:51)
[2017-12-29 05:08] LABS: PLATELET COUNT 425 10^3/uL (150-400)
--- NOTE | 2017-12-29 07:18 | SOAPPROG ---
SOAP Progress Note Assessment/Plan: Assessment: POD#5 left mini thoracotomy with decortication, debridement small abscess, and intercostal nerve block Necrotizing left lower lobe pneumonia with abscess, empyema and resp failure - Taken to OR for washout and decortication of trapped lung. Improved aeration achieved without active air leak. Extubated without incident. No further pressor support. Active diuresis of significant fluid overload in progress. 1 of [address] scan yest shows new left ant effusion and inc consolidation of LLL. Guttural tube in good position. Intraop culture staph intermedius, sensitive to all. Antibiotics per ID. Satisfactory analgesia on [place] and Dilaudid. Acute anemia- Likely 2/2 marrow suppression/sepsis. No transfusions required. H/ H > 12/30 maintained. VTE prophylaxis with SCDs and Lovenox. Plan: Chest tube management as per Dr Lawrence. Cont BID IV lasix. Intensify pulmonary toilet. 12/29/17 07:15 Subjective: Positive outlook, noting improving ambulatory capacity and sense of well being. Only struggle is at night, in terms of pain and more labored breathing. Objective: Vital Signs Temp Pulse Resp BP Pulse Ox 37.0 C 93 16 111/62 92 12/28/17 22:44 12/29/17 03:55 12/29/17 03:55 12/28/17 22:44 12/29/17 03:55 Microbiology 12/24/17 12:43 Gram Stain - Final Pleural Fluid - Swab Laboratory Results 12/29/17 04:56 12/29/17 04:56 12/28/17 12/29/17 12/30/17 05:59 05:59 05:59 Intake Total 400 750 Output Total 3470 1455 Balance -3070 -705 PT 18.0 SEC (12.0-15.0) H 12/21/17 13:05 INR 1.47 (0.83-1.16) H 12/21/17 13:05 Recurrent 2-3 lpm O2 req. Adequate I/Os. Almost neg 4liters/24h. +4.5 kg overall. CTOP remains serous. Quantity approaching removal criteria. Physical Exam - Physical Exam General Appearance: alert, no apparent distress Respiratory: decreased breath sounds (LLL, with e to a changes), other (Left thoracot CDI. Chest tube to pleurovac, serous drainage, +tidal, no air leak w cough. ) Cardiac/Chest: regular rate, rhythm Abdomen: non-tender, soft Skin: warm/dry Extremities: swelling (1-2+ dependent) ICD10 Worksheet Patient Problems: Problems Problem Status Onset Abscess of lung with pneumonia Acute Septic shock Acute
--- NOTE | 2017-12-29 09:08 | HOSPPROG ---
Hospitalist Progress Note Assessment/Plan: #Empyema: Strep. s/p VATs. CT pulled today. Will need 4 wks abx Ertapenem, PICC #Necrotizing PNA: abx as above #Mild hyponatremia: encourage PO #Chest pain: should improve with tube out. PRN opioids #Volume overload: Lasix #Diet: regular #DVT ppx: lovenox #Disp: inpatient admission for IV abx Subjective: SOB and pain improved. Objective: Vital Signs Temp Pulse Resp BP Pulse Ox 36.9 C 90 18 96/57 L 87 L 12/29/17 08:00 12/29/17 08:00 12/29/17 08:00 12/29/17 08:00 12/29/17 08:00 Microbiology 12/24/17 12:43 Gram Stain - Final Pleural Fluid - Swab Laboratory Results 12/29/17 04:56 12/29/17 04:56 12/28/17 12/29/17 12/30/17 05:59 05:59 05:59 Intake Total 400 750 Output Total 3470 1455 375 Balance -3070 -705 -375 PT 18.0 SEC (12.0-15.0) H 12/21/17 13:05 INR 1.47 (0.83-1.16) H 12/21/17 13:05 - Physical Exam Constitutional: no apparent distress Eyes: PERRL Ears, Nose, Mouth, Throat: moist mucous membranes Cardiovascular: regular rate and rhythym Respiratory: other (decreased BS on left base) Gastrointestinal: normoactive bowel sounds Genitourinary: No montez in urethra Skin: warm Musculoskeletal: other (left CT site CDI, mild crepitus) ICD10 Worksheet Patient Problems: Problems Problem Status Onset Abscess of lung with pneumonia Acute Septic shock Acute
[2017-12-29] MEDS: FUROSEMIDE 40 MG/4 ML VIAL IVP SCH ×2 (09:41→15:35)
[2017-12-29] MEDS: ERTAPENEM 1 GM in NS 100 ML IV SCH (09:42)
[2017-12-29] MEDS: HYDROCODONE/APAP 10/325 TAB PO PRN (09:42)
[2017-12-29] MEDS: POTASSIUM CL 20 MEQ TAB PO SCH ×2 (09:42→22:51)
[2017-12-29] MEDS: PANTOPRAZOLE SODIUM 40 MG TAB PO SCH (09:42)
[2017-12-29] MEDS: ENOXAPARIN 40 MG/0.4 ML SYR SC SCH (09:43)
[2017-12-29] MEDS: AZELAIC ACID TP SCH (09:43)
--- NOTE | 2017-12-29 10:38 | PCMIDPN ---
Assessment/Plan: Assessment/Plan: * Left-sided empyema/necrotizing pneumonia due to Streptococcus intermedius status post VATS: Gradual clinical improvement post VATS and with antibiotic therapy. CT scan of chest shows residual apical fluid and pneumonia. Continue ertapenem with anticipated 4 week course of therapy post VATS. Side effects of ertapenem including potential for allergic reactions and C difficile colitis discussed. Ultimately will require PICC line placement - risk and benefits of PICC line including potential for DVT or line infection also discussed. 12/29/17 10:34 Subjective: Patient feeling slowly better with ongoing cough. Notes he is up ambulating some and using incentive spirometer. Objective: Vital Signs Temp Pulse Resp BP Pulse Ox 36.9 C 90 18 96/57 L 87 L 12/29/17 08:00 12/29/17 08:00 12/29/17 08:00 12/29/17 08:00 12/29/17 08:00 Microbiology 12/24/17 12:43 Gram Stain - Final Pleural Fluid - Swab Laboratory Results 12/29/17 04:56 12/29/17 04:56 12/28/17 12/29/17 12/30/17 05:59 05:59 05:59 Intake Total 400 750 Output Total 3470 2225 375 Balance -3070 -705 -375 Ertapenem # 4 (antibiotics # 9) Pleural cultures Streptococcus intermedius CT of chest reviewed showing anterior loculated fluid collection and residual left lower lobe pneumonia - Physical Exam General Appearance: alert, no apparent distress, non-toxic EENT: No scleral icterus, No thrush, No conjunctival petechiae Respiratory: other (Decreased breath sounds left lung field with intermittent cough) Cardiac/Chest: regular rate, rhythm, No systolic murmur Extremities: pedal edema Abdomen: non-tender, No distended ICD10 Worksheet Patient Problems: Problems Problem Status Onset Abscess of lung with pneumonia Acute Septic shock Acute
--- NOTE | 2017-12-29 12:06 | ASMTCMCOM ---
CM Note CM Note Notes: CM spoke to SWEETIE Man regarding d/c POC. Pts chest tubes have been removed. Pt is currently getting ivabx. CM available if pt requires ivabx. CM available for changes. Plan: Independent Date Signed: 12/29/2017 12:05 PM Electronically Signed By:KEITH Wright
--- NOTE | 2017-12-29 13:50 | ASMTCMCOM ---
CM Note CM Note Notes: After reviewing Dr. Moncada's progress note today pt may need 4 weeks of iv invanz. Referral sent to [facility] and [facility]. [facility] is able to accept. CM to follow. Plan: PARMINDER; RN with Lori Date Signed: 12/29/2017 01:48 PM Electronically Signed By:KEITH Wright
--- NOTE | 2017-12-29 13:55 | PDCONSULT ---
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 It started with a possible upper respiratory infection about 4-6 weeks prior to that and was productive of thick brown sputum with possible hemoptysis. He reported a longstanding history of sinus disease and previous septoplasty. He was initially treated with azithromycin but had no specific change and was seen in the emergency department on 12/05/2017 with a chest x- ray showing only what was thought to be a hiatal hernia. His vital signs, laboratory testing, and viral respiratory panel were all negative. I suspected the upper airway cough syndrome and prescribed Ivone and Rhinocort, as well as Advair for a possible history of asthma. However, he continued to deteriorate and again return to the emergency department where CT scan ruled out pulmonary embolism but showed a left lower lobe abscess and consolidation. There was also pleural effusion. He also presented with subjective fever as well as hypotension that was unresponsive to fluids in the emergency department. His white blood cell count was only 9 as other labs were unremarkable. 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 ROS: He denies fevers, chills, night sweats visual changes, headache, chest pain, syncope, wheezing, cough, abdominal pain, nausea, vomiting, diarrhea, dysuria, rash, new skin lesions, muscle weakness, joint pain, anxiety, depression, lymphadenopathy. All other review of systems negative except as noted in HPI Physical exam All vital signs were reviewed and are recorded in [facility] General well-developed, well-nourished. Able to speak in full sentences without using accessory muscles Eyes were normal with equally round reactive pupils without jaundice. Oral cavity showed no evidence of thrush or erythema Neck was supple without jugular venous distention Breath sounds were decreased bilaterally without wheezing, rales, or rhonchi Heart had a regular rate and rhythm, no murmurs, or rubs. There is no peripheral edema Abdomen was soft, nontender, without hepatosplenomegaly and had normal bowel tones Extremities showed no clubbing, cyanosis, or edema Lymphatic system no adenopathy Skin warm and dry without rash Neuro alert and oriented x3 with normal cranial nerves and deep tendon reflexes Objective data includes CT scan as noted above as well as laboratory values. I reviewed the CT scan personally, as well as previous notes. Assessment/plan: 1. Lung mass- I am highly suspicious of a lung abscess but cannot rule out possibility of malignancy despite the being low. I think bronchoscopy would be quite useful at this time and plan performed that later this afternoon. We can look at cultures and identify any endobronchial lesions that may require biopsy. I discussed these with the patient in some detail as well as the admitting hospitalist Dr. Thibodeaux. In addition we will obtain a infectious disease consult 2. Possible asthma-retrospectively this may be misleading I suggested the withhold his Advair at this time. He will eventually need outpatient pulmonary function testing once he has recovered 3. Chronic sinusitis he would likely benefit from ongoing nasal steroids 4. Septic shock with refractory hypotension. This is likely due to his underlying abscess and should be treated with sepsis protocol including vasopressors, fluid challenges, cultures, and broad-spectrum antibiotics. He is otherwise stable from a pulmonary, cardiac, and renal perspective. Critical care time separate from procedures was 35 min
[2017-12-29] MEDS: ZOLPIDEM TARTRATE 5 MG TAB PO SCH (22:51)
[2017-12-30] MEDS: HYDROmorphONE/DILAUDID 2 MG TAB PO PRN ×5 (04:26→23:00)
[2017-12-30] MEDS: IPRATROPIUM/ALBUTEROL 3 ML DEYVIAL IH PRN (04:44)
[2017-12-30] MEDS: guaiFENesin/CODEINE PHOS 10 ML UDCUP PO SCH ×4 (05:02→23:00)
[2017-12-30] MEDS: PANTOPRAZOLE SODIUM 40 MG TAB PO SCH (08:58)
[2017-12-30] MEDS: AZELAIC ACID TP SCH (09:09)
[2017-12-30] MEDS: POTASSIUM CL 20 MEQ TAB PO SCH (09:10)
[2017-12-30] MEDS: FUROSEMIDE 40 MG/4 ML VIAL IVP SCH ×2 (09:18→15:59)
[2017-12-30] MEDS: ERTAPENEM 1 GM in NS 100 ML IV SCH (09:18)
[2017-12-30] MEDS: ENOXAPARIN 40 MG/0.4 ML SYR SC SCH (09:18)
--- NOTE | 2017-12-30 09:20 | PCMIDPN ---
Assessment/Plan: # Strep intermedius Necrotizing left lower lobe pneumonia with empyema. --4 weeks post decortication 01/21 stop date --Streptococcus intermedius on pleural culture with a low ceftriaxone HOLLIE can DC ertapenem and start ceftriaxone 2 g IV daily --reviewed chest x-ray from today, persistent pleural fluid. Patient is clinically improved overall. Will discuss with surgery if further drainage needed. Microbiology 12/21 BAL: MSSA 12/21 pleural fluid: Gram stain negative, culture NGTD 12/21 blood cultures (2) NGTD 12/24 pleural fluid from OR: S. intermedius ( ceftriaxone <0.06) Imaging: CXR: persistent fluid L side Medications, Abx #10 Ertapenem 1 g IV daily, # 5 Subjective: patient feeling well happy that CT are out Objective: Vital Signs Temp Pulse Resp BP Pulse Ox 36.9 C 88 14 114/67 90 L 12/30/17 07:50 12/30/17 07:50 12/30/17 07:50 12/30/17 07:50 12/30/17 07:50 Microbiology 12/24/17 12:43 Gram Stain - Final Pleural Fluid - Swab Laboratory Results 12/30/17 04:42 12/30/17 04:42 12/29/17 12/30/17 12/31/17 05:59 05:59 05:59 Intake Total 750 650 Output Total 1455 4700 225 Balance -815 -0420 -225 - Physical Exam General Appearance: alert, no apparent distress Respiratory: other (decreased BS L base 1/2 way up with scattered crackles), No accessory muscle use Neck: supple Cardiac/Chest: regular rate, rhythm, No systolic murmur Extremities: No pedal edema Abdomen: non-tender, soft Neuro/Psych: alert, normal mood/affect, oriented x 3 - Time Spent With Patient Time Spent with Patient: greater than 35 minutes Time Spent with Patient: Greater than 35 minutes spent on this patients care, greater than 50% of time spent counseling, educating, and coordinating care regarding the above mentioned plan. ICD10 Worksheet Patient Problems: Problems Problem Status Onset Abscess of lung with pneumonia Acute Septic shock Acute
[2017-12-30] MEDS: SENNOSIDES/DOCUSATE SODIUM TAB PO PRN (09:55)
--- NOTE | 2017-12-30 11:04 | HOSPPROG ---
Hospitalist Progress Note Assessment/Plan: #Strep intermedius necrotizing PNA/empyema: s/p VATs. CT pulled today. Abx 4wks from VATs, stop 01/21 #Mild hyponatremia: encourage PO #Chest pain: should improve with tube out. PRN opioids #Volume overload: Lasix #Diet: regular #DVT ppx: lovenox #Disp: inpatient admission for IV abx Subjective: chest pain improved Objective: Vital Signs Temp Pulse Resp BP Pulse Ox 36.9 C 88 14 114/67 90 L 12/30/17 07:50 12/30/17 07:50 12/30/17 07:50 12/30/17 07:50 12/30/17 07:50 Microbiology 12/24/17 12:43 Gram Stain - Final Pleural Fluid - Swab Laboratory Results 12/30/17 04:42 12/30/17 04:42 12/29/17 12/30/17 12/31/17 05:59 05:59 05:59 Intake Total 750 650 Output Total 1455 4700 225 Balance -705 -4050 -225 PT 18.0 SEC (12.0-15.0) H 12/21/17 13:05 INR 1.47 (0.83-1.16) H 12/21/17 13:05 - Time Spent With Patient Time Spent with Patient: greater than 35 minutes Time Spent with Patient: Greater than 35 minutes spent on this patients care, greater than 50% of time spent counseling, educating, and coordinating care regarding the above mentioned plan. - Physical Exam Constitutional: no apparent distress Eyes: PERRL Ears, Nose, Mouth, Throat: moist mucous membranes Cardiovascular: regular rate and rhythym Respiratory: other (mild crepitus as CT site. Decreased breath sounds left base) Gastrointestinal: normoactive bowel sounds Genitourinary: no bladder fullness Skin: warm Musculoskeletal: full muscle strength Neurologic: AAOx3, CN II-XII Intact Psychiatric: interacting appropriately ICD10 Worksheet Patient Problems: Problems Problem Status Onset Abscess of lung with pneumonia Acute Septic shock Acute
--- NOTE | 2017-12-30 16:01 | SOAPPROG ---
SOAP Progress Note Assessment/Plan: Assessment: POD#6 left mini thoracotomy with decortication, debridement small abscess, and intercostal nerve block Strep intermedius necrotizing left lower lobe pneumonia with abscess, empyema and resp failure - Taken to OR for washout and decortication of trapped lung. Improved aeration achieved without active air leak. Extubated without incident. No further pressor support. Active diuresis of significant fluid overload in progress. Both chest tubes out. Residual complex basilar effusion with consolidated lower lung. No further surgical intervention planned unless clinical deterioration. Antibiotics per ID. Satisfactory analgesia on Dilaudid. Acute anemia- Likely 2/2 marrow suppression/sepsis. No transfusions required. H/ H > 10/ maintained. VTE prophylaxis with SCDs and Lovenox. Plan: Relax diuresis. Cont aggressive pulmonary toilet. Ok to shower. Ok to leave wounds open to air. CV surgery will sign off. Please contact Dr Lawrence with any concerns. 12/30/17 15:57 Subjective: More comfortable since tube removal yest. Light activity well tolerated. No acute concerns. Objective: Vital Signs Temp Pulse Resp BP Pulse Ox 37.4 C 88 14 100/30 L 93 12/30/17 15:12 12/30/17 15:12 12/30/17 15:12 12/30/17 15:12 12/30/17 15:12 Microbiology 12/21/17 12:30 Mycobacterial Smear (HOLLIE) - Final Lung Left Lower Lobe - Bronchial Washings 12/24/17 12:43 Gram Stain - Final Pleural Fluid - Swab Laboratory Results 12/30/17 04:42 12/30/17 04:42 12/29/17 12/30/17 12/31/17 05:59 05:59 05:59 Intake Total 750 650 775 Output Total 8558 9370 1125 Balance -705 -4050 -350 PT 18.0 SEC (12.0-15.0) H 12/21/17 13:05 INR 1.47 (0.83-1.16) H 12/21/17 13:05 Physical Exam - Physical Exam General Appearance: alert, no apparent distress Respiratory: decreased breath sounds (distal to left mid scapula), other ( Thoracot CDI. Chest tube dressing changed.) Cardiac/Chest: regular rate, rhythm Abdomen: non-tender, soft Skin: warm/dry Extremities: swelling (trace dependent) ICD10 Worksheet Patient Problems: Problems Problem Status Onset Abscess of lung with pneumonia Acute Septic shock Acute
[2017-12-30] MEDS ORDERED: ALTEPLASE 2 MG VIAL IVP PRN (16:10)
--- NOTE | 2017-12-30 16:11 | PDIAF ---
- Diagnosis Diagnosis: Streptococcus intermedius left pneumonia and empyema Code Status: Full Code - Medication Management Discharge Medications: Medications to Continue on Transfer Zolpidem Tartrate [Ambien] 10 mg PO HS 09/02/14 [Last Taken Unknown] Acetaminophen/ASA/Caffeine [Excedrin Tablet (*)] 1 - 2 each PO DAILY PRN [Last Taken Unknown] Albuterol Sulfate [Proair Hfa] 2 puffs IH Q4H PRN 12/21/17 [Last Taken Unknown] Azelaic Acid [Azelex] 1 suraj TP DAILY 12/21/17 [Last Taken Unknown] Diazepam [Valium 10 MG (*)] 10 mg PO DAILY PRN 12/21/17 [Last Taken Unknown] Ibuprofen [Motrin (*)] 200 - 400 mg PO Q6H PRN 12/21/17 [Last Taken Unknown] Oxymetazoline HCl [Afrin Nasal [place] (OTC)] 1 spray EACHNARE BID PRN 12/21/17 [ Last Taken Unknown] Fpc Antibiotics: Ceftriaxone 2 g IV daily Retail Supervisor Antibiotic Stop Date: 01/21/18 Discharge Medications: Refer to the Discharge Home Medication list for PRN reason. PICC Care - Routine: Yes - Orders Services needed: Home Care, Registered Nurse Home Care Face to Face: I certify that this patient was under my care and that I had the required [id number] encounter meeting the encounter requirements on the discharge day. My findings support the fact that the patient is homebound as defined in Home Care Face to Face Continued: CMS Chapter 7 Medicare Benefits Manual 30.1.1 , The condition of the patient is such that there exists a normal inability to leave home and consequently, leaving home would require a considerable and taxing effort. Isolation Type: None - Labs/Radiology CBC w/diff Date: 01/05/18 (Weekly Friday) CMP Date: 01/05/18 (Weekly Friday) Call or Fax Lab and Imaging Results to: Savanah Yuan MD [facility] at fax [phone] - Follow Up Care Current Providers and Referrals: Terry Cummins MD [Primary Care Provider] - As per Instructions Savanah Yuan MD [Medical Doctor] - 01/06/18 3:00 pm
[2017-12-30] MEDS: ZOLPIDEM TARTRATE 5 MG TAB PO SCH (23:00)
[2017-12-31] MEDS: guaiFENesin/CODEINE PHOS 10 ML UDCUP PO SCH ×2 (05:37→14:38)
[2017-12-31] MEDS: HYDROmorphONE/DILAUDID 2 MG TAB PO PRN ×3 (05:57→14:39)
[2017-12-31 07:22] VITALS: BP 107/61
[2017-12-31] MEDS ORDERED: FUROSEMIDE 20 MG TAB PO SCH (09:00)
--- NOTE | 2017-12-31 09:17 | PDIAF ---
- Diagnosis Diagnosis: Streptococcus intermedius left pneumonia and empyema Code Status: Full Code - Medication Management Discharge Medications: Medications to Continue on Transfer Zolpidem Tartrate [Ambien] 10 mg PO HS 09/02/14 [Last Taken Unknown] Acetaminophen/ASA/Caffeine [Excedrin Tablet (*)] 1 - 2 each PO DAILY PRN [Last Taken Unknown] Albuterol Sulfate [Proair Hfa] 2 puffs IH Q4H PRN 12/21/17 [Last Taken Unknown] Azelaic Acid [Azelex] 1 suraj TP DAILY 12/21/17 [Last Taken Unknown] Diazepam [Valium 10 MG (*)] 10 mg PO DAILY PRN 12/21/17 [Last Taken Unknown] Ibuprofen [Motrin (*)] 200 - 400 mg PO Q6H PRN 12/21/17 [Last Taken Unknown] Oxymetazoline HCl [Afrin Nasal [place] (OTC)] 1 spray EACHNARE BID PRN 12/21/17 [ Last Taken Unknown] Fpc Antibiotics: Ceftriaxone 2 g IV daily Excellence Specialist Antibiotic Stop Date: 01/21/18 Discharge Medications: Refer to the Discharge Home Medication list for PRN reason. PICC Care - Routine: Yes - Orders Services needed: Home Care, Registered Nurse Home Care Face to Face: I certify that this patient was under my care and that I had the required [id number] encounter meeting the encounter requirements on the discharge day. My findings support the fact that the patient is homebound as defined in Home Care Face to Face Continued: CMS Chapter 7 Medicare Benefits Manual 30.1.1 , The condition of the patient is such that there exists a normal inability to leave home and consequently, leaving home would require a considerable and taxing effort. Isolation Type: None - Labs/Radiology CBC w/diff Date: 01/05/18 (Weekly Friday) CMP Date: 01/05/18 (Weekly Friday) Call or Fax Lab and Imaging Results to: Savanah Yuan MD [facility] at fax [phone] - Follow Up Care Current Providers and Referrals: Terry Cummins MD [Primary Care Provider] - As per Instructions Savanah Yuan MD [Medical Doctor] - 01/08/18 11:30 am
[2017-12-31] MEDS: ENOXAPARIN 40 MG/0.4 ML SYR SC SCH (09:37)
[2017-12-31] MEDS: AZELAIC ACID TP SCH (09:37)
[2017-12-31] MEDS: PANTOPRAZOLE SODIUM 40 MG TAB PO SCH (09:37)
--- NOTE | 2017-12-31 09:53 | PCMIDPN ---
Assessment/Plan: # Strep intermedius Necrotizing left lower lobe pneumonia with empyema. --4 weeks post decortication 01/21 stop date --Streptococcus intermedius on pleural culture with a low ceftriaxone HOLLIE --dc after antibiotics today ok from ID perspective Microbiology 12/21 BAL: MSSA 12/21 pleural fluid: Gram stain negative, culture NGTD 12/21 blood cultures (2) NGTD 12/24 pleural fluid from OR: S. intermedius ( ceftriaxone <0.06) Imaging: CXR: persistent fluid L side Medications, Abx #11 ceftriaxone 2gm iV daily Subjective: some restriction on L side w deep inspiration mild intermittent coughing Objective: Vital Signs Temp Pulse Resp BP Pulse Ox 36.8 C 87 14 107/61 91 L 12/31/17 07:21 12/31/17 07:21 12/31/17 07:21 12/31/17 07:21 12/31/17 07:21 Microbiology 12/21/17 12:30 Mycobacterial Smear (HOLLIE) - Final Lung Left Lower Lobe - Bronchial Washings 12/24/17 12:43 Gram Stain - Final Pleural Fluid - Swab Laboratory Results 12/31/17 05:18 12/31/17 05:18 12/30/17 12/31/17 01/01/18 05:59 05:59 05:59 Intake Total 1700 1785 Output Total 4700 1900 Balance -3000 -115 - Physical Exam General Appearance: alert, no apparent distress Respiratory: other (decreased ) Cardiac/Chest: regular rate, rhythm Extremities: No pedal edema Skin: No rash Neuro/Psych: alert, normal mood/affect, oriented x 3 - Time Spent With Patient Time Spent with Patient: greater than 35 minutes (coordination of care with DR Denney and education and counseling of patient re PICC, IV antibiotics) Time Spent with Patient: Greater than 35 minutes spent on this patients care, greater than 50% of time spent counseling, educating, and coordinating care regarding the above mentioned plan. ICD10 Worksheet Patient Problems: Problems Problem Status Onset Abscess of lung with pneumonia Acute Septic shock Acute
--- NOTE | 2017-12-31 11:03 | PDHOMEO2F ---
Home Oxygen Face to Face Home Orders: I certify that a physician or a nurse practitioner or physician's electrician assistant has had a [id number] encounter with this patient on the date of this order due to the diagnosis listed, which relates to the primary reason the patient requires home oxygen. Alternative treatments have been tried, or considered, and deemed ineffective. It is anticipated that supplemental oxygen will result in improvement with treatment. Home oxygen qualifying diagnosis: Empyema Home oxygen secondary diagnosis: Acute hypoxic respiratory failure SpO2 on room air (%): 85 Frequency of home oxygen needed: continuous Home oxygen liters per minute: 2 Home oxygen delivery device: nasal cannula Concentrator: Yes E-tanks for mobility and back up: Yes If ordering portable O2, is the patient mobile in the home?: Yes I certify that, based on these findings, the home oxygen is medically necessary for this patient for the following length of time. Length of time home oxygen needed: 99 years
--- NOTE | 2017-12-31 13:32 | GDS ---
DISCHARGE DIAGNOSES: 1. Acute hypoxemic respiratory failure. 2. Sepsis. 3. Volume overload. 4. Streptococcus intermedius necrotizing pneumonia/empyema, status post mini- thoracotomy with decortication and abscess debridement. 5. Acute chest pain. 6. Mild hyponatremia. CONSULTATIONS: 1. Infectious Disease. 2. Pulmonology. 3. Cardiothoracic Surgery. PROCEDURES: Mini-thoracotomy with decortication, abscess drainage, and nerve block. HISTORY OF PRESENT ILLNESS: A 37-year-old male who presented with several weeks of cough and mild hemoptysis. He had 3 months of anorexia with weight loss, worsening night sweats over the past [address] Link a week ago and was started on inhaler. He has been traveling quite significantly recently and feels overall run down. HOSPITAL COURSE: 1. Sepsis, secondary to necrotizing pneumonia/empyema. 2. Streptococcus intermedius necrotizing pneumonia/empyema, status post mini- thoracotomy and decortication. He will be transition to ceftriaxone daily through 01/21/2018. To follow up with Dr. Yuan 01/08/2018, with weekly CBC and CMP. 3. Acute hypoxemic respiratory failure: due to acute infection, as well as some volume overload. He was diuresed here with much improvement. Will discharge on oxygen. 4. Chest pain: improved. Alternate between Advil, APAP, and Dilaudid. 5. Mild hyponatremia. encourage p.o. intake. DISPOSITION: Patient is stable for discharge home with home health care for antibiotics. NEW MEDICATIONS: 1. Ceftriaxone. 2. Dilaudid. FOLLOWUP: 1. Dr. Yuan 01/08/2018. 2. PCP, Dr. Cummins. PHYSICAL EXAMINATION: VITAL SIGNS: Today, temperature 36.8, blood pressure 107 /61, heart rate in the 80s, respirations 14, 91% on 1 L. GENERAL: He is well appearing in no acute distress. HEENT: PERRLA. Moist mucous membranes. CV: Regular rate and rhythm. LUNGS: Chest tube site is dressed. No surrounding erythema. Decreased breath sounds left base. : No [place]. MUSCULOSKELETAL: 5/5 upper and lower extremity strength. NEURO: 2 through 12 intact. PSYCH: Alert and oriented x3. Time spent on discharge: Greater than 30 minutes counseling patient and his partner at bedside on medications, followup, and return precautions. /[id number]/MODL MTDD
--- NOTE | 2017-12-31 13:40 | ASMTLACE ---
SEAN Length of stay for Answers: 7-13 days current admission Acuity / Level of Answers: Yes Care: Did the patient have an inpatient admission? Comorbidities - select Answers: Other Notes: Asthma all that apply # of Emergency department Answers: 1-2 visits in the last 6 months Social determinants Answers: Mental health diagnosis (anxiety, depression, pers onality disorders, etc.) Score: 13 Date Signed: 12/31/2017 01:39 PM Electronically Signed By:Amy Tomlinson RN
--- NOTE | 2017-12-31 13:44 | ASMTDCNOTE ---
Case Management Discharge Discharge Order Complete? Answers: Yes Patient to Obtain Answers: Other Notes: [employer] [facility] Transportation Arranged Answers: Family/Friends Faxed Final Orders Answers: Yes Discharge Comments Notes: D/w [facility]MPER, final orders faxed. Viviane at [facility] and Daphney at [facility] notified. Pt given brochure with HC phone number, RN will call pt brandon to schedule home visit tomorrow. Date Signed: 12/31/2017 01:43 PM Electronically Signed By:Amy Tomlinson RN
--- NOTE | 2018-01-01 17:20 | ASDISCHSUM ---
Discharge Information Plan Status:IV ABX/Infusion Medically Cleared to Leave: Discharge Date:12/31/2017 04:27 PM D/C Disposition:Home Health Service ADT D/C Disposition:Home Health Service Projected Discharge Date:12/30/2017 11:00 AM Transportation at D/C:Family Discharge Delay Reason: Follow-Up Date:12/30/2017 11:00 AM Discharge Slot: Final Diagnosis:Worsening cough, L PE Placement Information Referral Type:Home Infusion Referral ID:[id number] Provider Name:[facility] Address 1:[address] Address 2: City:[place] Selection Factors: State:[place] Referral Type:*Home Health Care Services Referral ID:[id number] Provider Name:[facility] Address 1:[address] Address 2: City:[place] Selection Factors: State:[place] Patient Contact Information Contact Name:ALEJANDRINA Relationship:Life Partner Address:[address] City:[place] Alternate Phone: [facility]/Zip Code:[place] [address] Email: Financial Information Financial Class:CHASE Primary Plan Desc:[facility] [place] [employer] Primary Plan Number:[id number] Secondary Plan Desc: Secondary Plan Number: Assessment Information LACE LACE Length of stay for Answers: 7-13 days current admission Acuity / Level of Answers: Yes Care: Did the patient have an inpatient admission? Comorbidities - select Answers: Other Notes: Asthma all that apply # of Emergency department Answers: 1-2 visits in the last 6 months Social determinants Answers: Mental health diagnosis (anxiety, depression, pers onality disorders, etc.) Score: 13 Date Signed: 12/31/2017 01:39 PM Electronically Signed By:Amy Tmolinson RN BC CM Progress Note CM Note CM Note Notes: 37yo male admitted for Worsening cough, Complex L PE, Lung mass. Patient has a Life Partner, Shawn. Discharge needs are unknown as yet. CM to follow. Date Signed: 12/22/2017 09:36 AM Electronically Signed By:Ara Mcdonald LCSW BC CM Progress Note CM Note CM Note Notes: Patient given MPOA paperwork to complete. Date Signed: 12/22/2017 03:05 PM Electronically Signed By:Ara Mcdonald LCSW BC CM Progress Note CM Note CM Note Notes: PT/OT have cleared patient to d/c independent. CM available if d/c needs arise. Date Signed: 12/26/2017 01:19 PM Electronically Signed By:Dena Brewer LCSW BC CM Progress Note CM Note CM Note Notes: CM spoke to SWEETIE Man regarding d/c POC. Pts chest tubes have been removed. Pt is currently getting ivabx. CM available if pt requires ivabx. CM available for changes. Plan: Independent Date Signed: 12/29/2017 12:05 PM Electronically Signed By:KEITH Wright [facility] Progress Note CM Note MARELY Note Notes: After reviewing Dr. Moncada's progress note today pt may need 4 weeks of iv invanz. Referral sent to [facility] and [facility]. [facility] is able to accept. CM to follow. Plan: [facility]; RN with [facility] Date Signed: 12/29/2017 01:48 PM Electronically Signed By:KEITH Wright Case Management Discharge Plan Note Case Management Discharge Discharge Order Complete? Answers: Yes Patient to Obtain Answers: Other Notes: [facility] Medications Transportation Arranged Answers: Family/Friends Faxed Final Orders Answers: Yes Discharge Comments Notes: D/w [employer], final orders faxed. Viviane at [facility] and Daphney at [facility] notified. Pt given brochure with [facility] phone number, RN will call pt tonight to schedule home visit tomorrow. Date Signed: 12/31/2017 01:43 PM Electronically Signed By:Amy Tomlinson RN Intervention Information
== END 2017-12-31 16:27 | disposition home health service (06) | DRG 853 ==
LOC: EEVIPCON 08:05 → F2N 11:48 → F3E 12-27 17:14 → UNDODISIN 12-31 15:47
PROVIDERS: ADMIT Student in an Organized Health Care Education/Training Program; ATTEND Student in an Organized Health Care Education/Training Program
PROC: 0B9P30Z Drainage of Left Pleura with Drainage Device, Percutaneous Approach (ICD-10-PCS; 2017-12-21)
PROC: 0B9J8ZX Drainage of Left Lower Lung Lobe, Via Natural or Artificial Opening Endoscopic, Diagnostic (ICD-10-PCS; 2017-12-21)
PROC: 0W9B3ZX Drainage of Left Pleural Cavity, Percutaneous Approach, Diagnostic (ICD-10-PCS; 2017-12-21)
PROC: 02HV33Z Insertion of Infusion Device into Superior Vena Cava, Percutaneous Approach (ICD-10-PCS; 2017-12-21)
PROC: 3E0T3BZ Introduction of Anesthetic Agent into Peripheral Nerves and Plexi, Percutaneous Approach (ICD-10-PCS; principal; 2017-12-24 11:30)
PROC: 0BNM4ZZ Release Bilateral Lungs, Percutaneous Endoscopic Approach (ICD-10-PCS; principal; 2017-12-24 11:30)
PROC: 0B9 Respiratory System, Drainage (ICD-10-PCS; principal; 2017-12-24 11:30)
PROC: 02HV33Z Insertion of Infusion Device into Superior Vena Cava, Percutaneous Approach (ICD-10-PCS; 2017-12-31)
DX: A41.01 Sepsis due to Methicillin susceptible Staphylococcus aureus (principal); R65.20 Severe sepsis without septic shock; J85.1 Abscess of lung with pneumonia; J85.0 Gangrene and necrosis of lung; J90 Pleural effusion, not elsewhere classified; B95.5 Unspecified streptococcus as the cause of diseases classified elsewhere; J93.9 Pneumothorax, unspecified; J96.01 Acute respiratory failure with hypoxia; E87.1 Hypo-osmolality and hyponatremia; D68.4 Acquired coagulation factor deficiency; J32.9 Chronic sinusitis, unspecified
CPT/HCPCS: 96374; 97116-GP; 97161-GP; 97165-GO; 97535-GO; C1751; J0171; J0295; J0330; J0696; J1170; J1335; J1650; J1720; J1885; J1940; J2175; J2250; J2270; J2405; J2704; J3010; J7613; P9041; Q9967

== ENCOUNTER → 2018-04-02 | Outpatient (CLI) | payer OTHER | LOC: FIMAGING 12:10 | PROVIDERS: ATTEND Internal Medicine Infectious Disease | DX: J90 Pleural effusion, not elsewhere classified (principal); J98.4 Other disorders of lung ==